=== PATIENT | female | born 1950 | race Caucasian/White ===

== ENCOUNTER 2019-03-27 14:07 | Inpatient (IN) ==
[2019-03-27] MEDS ORDERED: NS 1000 ML 1,000 ML IV SCH (16:24)
[2019-03-27 16:56] LABS: BASOPHILS % (AUTO) 0.3 % (0.2-1.0); EOSINOPHILS # (AUTO) 0.1 x10^3/uL (0.0-0.2); EOSINOPHILS % (AUTO) 1.1 % (0.9-2.9); HEMATOCRIT 39.4 % (36.0-47.0); HEMOGLOBIN 13.6 g/dL (12.0-16.0); LYMPHOCYTES # (AUTO) 1.8 X10^3/uL (1.3-2.9); LYMPHOCYTES % (AUTO) 21.5 % (21.0-51.0); MEAN CORPUSCULAR HEMOGLOBIN 29.1 pg (27.0-34.0); MEAN CORPUSCULAR HGB CONC 34.4 g/dL (33.0-35.0); MEAN CORPUSCULAR VOLUME 84.8 fL (80.0-100.0); MEAN PLATELET VOLUME 6.5 fL (7.4-11.0); MONOCYTES # (AUTO) 0.8 x10^3/uL (0.3-0.8); NEUTROPHILS # (AUTO) 5.6 x10^3/uL (2.2-4.8); NEUTROPHILS % (AUTO) 67.1 % (42.0-75.0); PLATELET COUNT 306 X10^3/uL (150.0-450.0); RED BLOOD COUNT 4.65 X10^6/uL (3.5-5.4); RED CELL DISTRIBUTION WIDTH 14.4 % (11.6-16.5); WHITE BLOOD COUNT 8.3 X10^3/uL (3.6-10.0)
[2019-03-27 17:12] LABS: ALANINE AMINOTRANSFERASE 20 Units/L (12-78); ALBUMIN 3.7 g/dL (3.4-5.0); ALKALINE PHOSPHATASE 104 Units/L (46-116); AMYLASE 37 Units/L (25-115); ASPARTATE AMINO TRANSFERASE 16 Units/L (15-37); BLOOD UREA NITROGEN 20 mg/dL (7-18); CALCIUM 9.2 mg/dL (8.5-10.1); CARBON DIOXIDE 27.4 mmol/L (21-32); CHLORIDE 99 mmol/L (98-107); COR NA(FOR HYPERGLY) 138 mmol/L (136-145); CREATININE 1.07 mg/dL (0.55-1.02); LIPASE 145 Units/L (73-393); SODIUM 137 mmol/L (136-145); TOTAL PROTEIN 7.9 g/dL (6.4-8.2); eGFR NON BLACK RACES 54 (>60)
[2019-03-27] MEDS: PROTONIX INJ 40 MG VIAL IVP SCH (17:26)
[2019-03-27] MEDS ORDERED: KLOR-CON PO PRN (17:29)
[2019-03-27] MEDS ORDERED: MAGNESIUM SULFATE 1 GRAM/100 mL PREMIX 1 GM/100 ML BAG IV PRN (17:29)
[2019-03-27] MEDS ORDERED: POTASSIUM CHL 40 MEQ/NS 0.45% 500 ML IV PRN (17:29)
[2019-03-27] MEDS ORDERED: K-DUR TAB 20 MEQ PO PRN (17:29)
[2019-03-27] MEDS ORDERED: MICRO K EXTEN CAP 10 MEQ PO PRN (17:29)
[2019-03-27] MEDS ORDERED: POTASSIUM CHL 60 MEQ/NS 0.45% 500 ML IV PRN (17:29)
[2019-03-27] MEDS ORDERED: POTASSIUM CHLORIDE LIQ 20 MEQ UDC PO PRN (17:29)
[2019-03-27] MEDS: MAG-OX TAB PO SCH (18:18)
[2019-03-27] MEDS: K-RIDER 10 MEQ/NS 100 ML 10 MEQ/100 ML BAG IV PRN ×2 (18:34→22:41)
[2019-03-27 18:49] VITALS: BMI 33.1
--- NOTE | 2019-03-27 19:12 | DR.H&P ---
H&P - History & Physical for Day of: H&P Date: 03/27/19 - Chief Complaint Chief Complaint: ABDOMINAL PAIN, NAUSEA/VOMITING - History of Present Illness History of Present Illness: IS A 68 YEAR OLD PATIENT OF OURS WHO IS A DIRECT ADMISSION DUE TO COMPLAINTS OF ABDOMINAL PAIN, NAUSEA, VOMITING, AND LIQUID STOOLS. SHE REPORTS ABDOMINAL PAIN SINCE 03/25/19. SHE WAS SEEN IN THE ER YESTERDAY. AT THAT TIME, A KUB REVEALED: Gaseous distention of both large and small bowel. Findings may represent ileus versus early/partial obstruction. SHE HAS A HISTORY OF BOWEL OBSTRUCTION. TODAY, SHE COMPLAINS OF PERSISTENT PAIN WITHOUT IMPROVEMENT. ON ADMISSION, VITALS WERE 98.9-89-20-94%-126/58. LABS WERE OBTAINED. ABNORMAL LAB VALUES INCLUDE THE FOLLOWING: BUN 20, CREATININE 1.07, GLUCOSE 126. WE WILL REPEAT A KUB TODAY AND CONSULT , GENERAL SURGEON. SHE WILL BE STARTED ON NORMAL SALINE AT 75ML/R, IV PROTONIX, DILAUDID 1MG IV Q4H PRN, POTASSIUM PROTOCOL, AND HOME MEDICATIONS WILL BE RESUMED. OTHERWISE, WE PLAN TO FOLLOW UP WITH AM LABS AND CONTINUE TO MONITOR. - Past Medical History Past Medical History: Depression, Anxiety, Hypothyroidism, COPD, GERD, Arthritis Additional Medical History: Frequent Constipation, Small Bowel Obstruction - Past Surgical History Surgical History: Abdominal Surgery, Joint Replacement Additional Surgical History: Hernia Repair, Back Surgery, Bladder Tack - Family History Family Medical History: Cancer, [place] - Social History Does patient currently use any type of tobacco product: No Have you used tobacco products in the last 12 months: No Type of Tobacco Use: None Does any household member use tobacco: No Alcohol Use: None Drug Use: None Prescription drug monitoring program results: PDMP was not reviewed - Medications Home Medications: prednisone Allergy (Verified 03/27/19 18:04) - Review of Systems Constitutional: Weakness Eyes: No Symptoms Reported ENT: No Symptoms Reported Respiratory: No Symptoms Reported Cardiovascular: No Symptoms Reported Gastrointestinal: Nausea, Vomiting, Abdominal Pain, Diarrhea Genitourinary: No Symptoms Reported Musculoskeletal: No Symptoms Reported Skin: No Symptoms Reported Neurological: Weakness - Physical Exam Vital Signs: Temperature 98.9 F Pulse Rate [Left Brachial] 89 Respiratory Rate 20 Blood Pressure [Right Arm] 136/60 Blood Pressure [Left Arm] 126/58 Blood Pressure [Standing] 114/56 Blood Pressure [Sitting] 110/50 Blood Pressure [Lying] 115/54 Blood Pressure 159/73 O2 Sat by Pulse Oximetry 94 Oriented: Normal Eyes: Normal Ear: Normal Nose: Normal Throat: Normal Respiratory: Diminished Throughout Cardiovascular: Normal : Normal Auscultation: Bowel Sounds: Decreased Palpation: Normal Tenderness: Diffuse, Moderate. negative: Rebound, Guarding, Rigidity Skin: Normal Musculoskeletal: Normal Psychiatric: Normal Mood Description: Calm Affect: Normal Speech Pattern: Clear - Assessment/Plan (1) Small bowel obstruction Status: Acute Plan: ADMIT, SURGICAL CONSULT, IV DILAUDID, IV ZOFRAN, IV PROTONIX, CONTINUE TO MONITOR (2) Abdominal pain Qualifiers: Abdominal location: generalized Qualified Code(s): R10.84 - Generalized abd ominal pain Status: Acute (3) Abdominal distension (gaseous) Status: Acute (4) Nausea & vomiting Qualifiers: Vomiting type: unspecified Vomiting Intractability: non-intractable Qualified Code(s): R11.2 - Nausea with vomiting, unspecified Status: Acute (5) Hypokalemia Status: Acute Plan: POTASSIUM PROTOCOL - Allergies Allergies/Adverse Reactions: Allergies Allergy/AdvReac Type Severity Reaction Status Date / Time prednisone Allergy Verified 03/27/19 18:04
[2019-03-27] MEDS ORDERED: ZOFRAN INJ 4 MG VIAL ONE (19:37)
[2019-03-27] MEDS: ZOFRAN INJ 4 MG VIAL IVP PRN (19:37)
[2019-03-27] MEDS: DILAUDID INJ IVP PRN (19:38)
[2019-03-27] MEDS ORDERED: ATIVAN INJ 2 MG VIAL ONE (20:09)
[2019-03-27] MEDS: ATIVAN INJ 2 MG VIAL IVP PRN (20:16)
[2019-03-27] MEDS: WELLBUTRIN SR 150 MG (BID) PO SCH (21:47)
[2019-03-27] MEDS: D5 1/2 NS 1000 ML 1,000 ML IV SCH (21:48)
--- NOTE | 2019-03-27 22:15 | RAD ---
Abdomen radiograph single-view Indication: NG tube placement Comparison: 03/27/2019 Findings: There is NG tube projecting over the upper abdomen, presumably in the stomach, probably associated with the hiatal hernia. Dilated loop of small bowel are noted. There is no large free air or pneumatosis. Cholecystectomy clips noted. Impression: Small bowel obstruction suggested. NG tube projects over the upper abdomen. Reported By:
--- NOTE | 2019-03-27 22:19 | CT ---
CT abdomen and pelvis without contrast Indication: Abdominal distention. Comparison: 10/26/2014 CT reviewed Technique: Helical images through the abdomen and pelvis without contrast. Coronal and sagittal reformats provided. Findings: Review of bone windows shows no destructive osseous lesion. Spine hardware noted. Limited images through the lower chest shows scarring. Heart size is normal. Abdomen: The gallbladder is absent. The liver, spleen, pancreas, adrenal glands, stomach and kidneys show no acute abnormality within limits of a noncontrast study. Aortic calcifications noted. Proximal small bowel is dilated with matted loops of mid abdominal small bowel and collapse of the colon distally. There is anastomosis in the right abdomen with transition point probably in the mid abdomen on axial image 55. Pelvis: The urinary bladder and rectum are normal. Uterus is absent. No adnexal region lesions seen. Impression: 1. Dilated loops of mid abdominal small bowel with stranding and fecal material in the bowel. Correlate clinically for any signs of developing bowel ischemia. Transition point is probably in the mid abdomen, with matted loops of small bowel seen anteriorly. Surgical consultation recommended 2. Other findings as above. Reported By:
[2019-03-28] MEDS: D5 1/2 NS 1000 ML 1,000 ML IV SCH ×3 (03:53→18:12)
--- NOTE | 2019-03-28 05:10 | RAD ---
Abdomen radiographic series-2 supine views Indication: Abdominal pain Comparison: 03/26/2019 Findings: Dilated loops of bowel are identified without free air or pneumatosis seen. Heart size is prominent. Impression: Small bowel obstruction. See separately dictated CT Reported By:
[2019-03-28 06:00] LABS: BASOPHILS % (AUTO) 0.5 % (0.2-1.0); EOSINOPHILS # (AUTO) 0.1 x10^3/uL (0.0-0.2); HEMATOCRIT 34.5 % (36.0-47.0); HEMOGLOBIN 11.7 g/dL (12.0-16.0); LYMPHOCYTES # (AUTO) 1.5 X10^3/uL (1.3-2.9); LYMPHOCYTES % (AUTO) 20.8 % (21.0-51.0); MEAN CORPUSCULAR HGB CONC 33.9 g/dL (33.0-35.0); MEAN CORPUSCULAR VOLUME 85.6 fL (80.0-100.0); MEAN PLATELET VOLUME 6.9 fL (7.4-11.0); MONOCYTES # (AUTO) 0.9 x10^3/uL (0.3-0.8); MONOCYTES % (AUTO) 11.8 % (0.0-13.0); NEUTROPHILS # (AUTO) 4.8 x10^3/uL (2.2-4.8); NEUTROPHILS % (AUTO) 64.9 % (42.0-75.0); PLATELET COUNT 246 X10^3/uL (150.0-450.0); RED BLOOD COUNT 4.03 X10^6/uL (3.5-5.4); RED CELL DISTRIBUTION WIDTH 14.4 % (11.6-16.5); WHITE BLOOD COUNT 7.4 X10^3/uL (3.6-10.0)
[2019-03-28 06:17] LABS: ALANINE AMINOTRANSFERASE 72 Units/L (12-78); ALBUMIN 2.9 g/dL (3.4-5.0); ALKALINE PHOSPHATASE 143 Units/L (46-116); ASPARTATE AMINO TRANSFERASE 64 Units/L (15-37); BLOOD UREA NITROGEN 15 mg/dL (7-18); CALCIUM 8.3 mg/dL (8.5-10.1); CARBON DIOXIDE 29.1 mmol/L (21-32); CHLORIDE 102 mmol/L (98-107); COR CA(FOR HYPOALB) 9.2 mg/dL (8.5-10.1); COR NA(FOR HYPERGLY) 138 mmol/L (136-145); CREATININE 0.79 mg/dL (0.55-1.02); MAGNESIUM 1.6 mg/dL (1.7-2.9); SODIUM 138 mmol/L (136-145); TOTAL PROTEIN 6.3 g/dL (6.4-8.2); eGFR NON BLACK RACES > 60 (>60)
[2019-03-28 06:43] LABS: BILIRUBIN,URINE NEGATIVE (NEGATIVE); BLOOD/HEMOGLOBIN,URINE 1+ (NEGATIVE); GLUCOSE, URINE NEGATIVE (NEGATIVE); KETONES,URINE NEGATIVE (NEGATIVE); LEUKOCYTE ESTERASE ,URINE 3+ (NEGATIVE); NITRITES,URINE NEGATIVE (NEGATIVE); PROTEIN,URINE 1+ (NEGATIVE); UROBILINOGEN,URINE NORMAL (NORMAL)
[2019-03-28 06:44] LABS: APPEARANCE,URINE HAZY (CLEAR); COLOR,URINE YELLOW (YELLOW)
[2019-03-28 06:45] LABS: BACTERIA,URINE TRACE /HPF (NEGATIVE); HYALINE CASTS, URINE FEW /LPF (NEGATIVE); MUCUS,URINE FEW /HPF (NEGATIVE); SQUAMOUS EPITHELIAL CELL,UR FEW /HPF (NEGATIVE)
[2019-03-28] MEDS: K-RIDER 10 MEQ/NS 100 ML 10 MEQ/100 ML BAG IV PRN ×2 (08:47→12:20)
[2019-03-28] MEDS ORDERED: ROCEPHIN VIAL 1 GRAM 1 G in NS 100 ML IV + SPIKE MINIBAG* 100 ML IV SCH (09:00)
[2019-03-28] MEDS: PROTONIX INJ 40 MG VIAL IVP SCH (09:42)
[2019-03-28] MEDS ORDERED: AFLURIA II4 or FLUARIX II4 IM ONE (10:00)
[2019-03-28] MEDS: MAG-OX TAB PO SCH (10:29)
[2019-03-28] MEDS: WELLBUTRIN SR 150 MG (BID) PO SCH ×2 (10:29→21:02)
[2019-03-28] MEDS: DILAUDID INJ IVP PRN ×3 (10:40→22:09)
[2019-03-28] MEDS: CIPRO IV 400 MG PREMIX* 400 MG/200 ML IV.SOLN. IV SCH ×2 (10:48→21:02)
[2019-03-28] MEDS: SOLU-Medrol 40 MG VIAL IVP SCH ×3 (10:50→21:02)
--- NOTE | 2019-03-28 11:44 | RAD ---
HISTORY: Abdominal Pain Study: Two views of the abdomen. Comparison: None Findings: Evaluation of the abdomen demonstrates a normal bowel gas pattern. No free air. No pathological soft tissue mass or calcification can be observed. The bony structures are grossly intact. IMPRESSION: 1. No evidence for acute abdominal pathology identified. Reported By:
--- NOTE | 2019-03-28 11:55 | PCM.PROG ---
Progress Note - Progress Note for Day of Date of Exam: 03/28/19 - Subjective Subjective: WAS ADMITTED FOR ILEUS VS SMALL BOWEL OBSTRUCTION AND ABDOMINAL PAIN. ON ADMISSION, A KUB WAS REPEATED AND REVEALED A SMALL BOWEL OBSTRUCTION. WAS CONSULTED. HE ORDERED AN ABDOMEN/PELVIS CT WHICH REVEALED: Dilated loops of mid abdominal small bowel with stranding and fecal material in the bowel. Correlate clinically for any signs of developing bowel ischemia. Transition point is probably in the mid abdomen, with matted loops of small bowel seen anteriorly. HE PLACED AN NG TUBE TO LOW INTERMITTENT SUCTION AND MADE HER NPO. HE INCREASED HER IV FLUIDS. TODAY, SHE IS LYING IN BED WITH EYES CLOSED ON MORNING ROUNDS. SHE AWAKENS EASILY TO VERBAL STIMUI. SHE REPORTS MILD IMPROVEMENT IN SYMPTOMS. ON EXAMINATION, HEART IS REGULAR IN RATE AND RHYTHM. BILATERAL LUNGS NOTED WITH DIMINISHED LUNG SOUNDS. ABDOMEN IS ROUND, SOFT, AND NOTED WITH MILD, DIFFUSE TENDERNESS. HYPOACTIVE BOWEL SOUNDS NOTED. HER VITALS THIS MORNING ARE: 98.0-78-20-99%-124/58. LABS WERE OBTAINED. ABNORMAL LAB VALUES INCLUDE THE FOLLOWING: HGB 11.7, HCT 34.5, GLUCOSE 112, CALCIUM 8.3, MAGNESIUM 1.6, AST 64, ALK PHOS 143, TOTAL PROTEIN 6.3, ALBUMIN 2.9. URINALYSIS REVEALED: WBC 10-20, RBC 10-20, BACTERIA TRACE, LEUKOCYTES 3+. URINE CULTURE IS PENDING. A KUB WAS REPEATED THIS MORNING AND REVEALED: Small bowel obstruction suggested. NG tube projects over the upper abdomen. SHE IS CURRENTLY RECEIVING D51/2 NS AT 150ML/HR, POTASSIUM AND MAGNESIUM PROTOCOLS, DILAUDID 1MG IV Q4H PRN, AND ZOFRAN 4MG IV Q6H PRN. TODAY, WE WILL START CIPRO 400MG IV Q12H AND SOLU-MEDROL 40MG IV Q8H. OTHERWISE, WE WILL CONTINUE WITH CURRENT PLAN OF CARE. WE PLAN TO FOLLOW UP WITH AM LABS AND CONTINUE TO MONITOR. - Past Medical Family Social History Past Med/Fam/Surg Hx: No changes since H&P Allergies: Allergies prednisone Allergy (Verified 03/27/19 18:04) - Review of Systems ROS: No change since H&P - Vital Signs and I&O's Vital Signs: Temperature 98.0 F Pulse Rate [Right Brachial] 78 Pulse Rate [Left Brachial] 89 Pulse Rate 77 Respiratory Rate 20 Blood Pressure [Right Arm] 124/58 Blood Pressure [Left Arm] 126/58 Blood Pressure [Standing] 114/56 Blood Pressure [Sitting] 110/50 Blood Pressure [Lying] 115/54 Blood Pressure 159/73 O2 Sat by Pulse Oximetry 100 Intake and Output: Intake & Output 03/25/19 03/26/19 03/27/19 03/28/19 11:59 11:59 11:59 11:59 Intake Total 0 / 0 Output Total 0 / 0 Balance 0 / 0 - Physical Exam Oriented: Normal Eyes: Normal Nose: Normal, Other (NG TUBE TO LOW INTERMITTENT SUCTION ) Throat: Normal Respiratory: Generalized, Diminished Cardiovascular: Normal : Normal Auscultation: Bowel Sounds: Decreased Palpation: Normal Tenderness: Diffuse, Mild. negative: Rebound, Guarding, Rigidity Skin: Normal Musculoskeletal: Normal Psychiatric: Normal Mood Description: Calm Affect: Normal Speech Pattern: Clear, Appropriate - Laboratory and Diagnostics Result Diagrams: 03/28/19 05:23 03/28/19 05:23 Labs: Laboratory WBC 7.4 X10^3/uL (3.6-10.0) 03/28/19 05:23 RBC 4.03 X10^6/uL (3.5-5.4) 03/28/19 05:23 Hgb 11.7 g/dL (12.0-16.0) L 03/28/19 05:23 Hct 34.5 % (36.0-47.0) L 03/28/19 05:23 MCV 85.6 fL (80.0-100.0) 03/28/19 05:23 MCH 29.0 pg (27.0-34.0) 03/28/19 05:23 MCHC 33.9 g/dL (33.0-35.0) 03/28/19 05:23 RDW 14.4 % (11.6-16.5) 03/28/19 05:23 Plt Count 246 X10^3/uL (150.0-450.0) 03/28/19 05:23 MPV 6.9 fL (7.4-11.0) L 03/28/19 05:23 Neut % (Auto) 64.9 % (42.0-75.0) 03/28/19 05:23 Lymph % (Auto) 20.8 % (21.0-51.0) L 03/28/19 05:23 [place] % (Auto) 11.8 % (0.0-13.0) 03/28/19 05:23 Eos % (Auto) 2.0 % (0.9-2.9) 03/28/19 05:23 Baso % (Auto) 0.5 % (0.2-1.0) 03/28/19 05:23 Neut # (Auto) 4.8 x10^3/uL (2.2-4.8) 03/28/19 05:23 Lymph # (Auto) 1.5 X10^3/uL (1.3-2.9) 03/28/19 05:23 [place] # (Auto) 0.9 x10^3/uL (0.3-0.8) H 03/28/19 05:23 Eos # (Auto) 0.1 x10^3/uL (0.0-0.2) 03/28/19 05:23 Baso # (Auto) 0.0 X10^3/uL (0.0-0.1) 03/28/19 05:23 Absolute Nucleated RBC 0.0 /100WBC 03/28/19 05:23 Sodium 138 mmol/L (136-145) 03/28/19 05:23 Corrected Sodium 138 mmol/L (136-145) 03/28/19 05:23 Potassium 3.7 mmol/L (3.5-5.1) 03/28/19 05:23 Chloride 102 mmol/L (98-107) 03/28/19 05:23 Carbon Dioxide 29.1 mmol/L (21-32) 03/28/19 05:23 BUN 15 mg/dL (7-18) 03/28/19 05:23 Creatinine 0.79 mg/dL (0.55-1.02) 03/28/19 05:23 Est GFR (MDRD) Af Amer > 60 (>60) 03/28/19 05:23 Est GFR (MDRD) Non-Af > 60 (>60) 03/28/19 05:23 Glucose 112 mg/dL (65-99) H 03/28/19 05:23 Calcium 8.3 mg/dL (8.5-10.1) L 03/28/19 05:23 Corrected Calcium 9.2 mg/dL (8.5-10.1) 03/28/19 05:23 Magnesium 1.6 mg/dL (1.7-2.9) L 03/28/19 05:23 Total Bilirubin 0.30 mg/dL (0.2-1.0) 03/28/19 05:23 AST 64 Units/L (15-37) H 03/28/19 05:23 ALT 72 Units/L (12-78) 03/28/19 05:23 Alkaline Phosphatase 143 Units/L (46-116) H 03/28/19 05:23 Total Protein 6.3 g/dL (6.4-8.2) L 03/28/19 05:23 Albumin 2.9 g/dL (3.4-5.0) L 03/28/19 05:23 Globulin 3.4 g/dL (2.5-4.5) 03/28/19 05:23 Albumin/Globulin Ratio 0.9 Ratio (1.1-2.1) L 03/28/19 05:23 Amylase 37 Units/L (25-115) 03/27/19 16:48 Lipase 145 Units/L (73-393) 03/27/19 16:48 Specimen Type Clean catch urine 03/28/19 06:25 Urine Color Yellow (YELLOW) 03/28/19 06:25 Urine Appearance Hazy (CLEAR) 03/28/19 06:25 Urine pH 6.0 (5.0 - 8.0) 03/28/19 06:25 Ur Specific [place] 1.015 (1.000-1.030) 03/28/19 06:25 Urine Protein 1+ (NEGATIVE) 03/28/19 06:25 Urine Glucose (UA) Negative (NEGATIVE) 03/28/19 06:25 Urine Ketones Negative (NEGATIVE) 03/28/19 06:25 Urine Occult Blood 1+ (NEGATIVE) 03/28/19 06:25 Urine Nitrite Negative (NEGATIVE) 03/28/19 06:25 Urine Bilirubin Negative (NEGATIVE) 03/28/19 06:25 Urine Urobilinogen Normal (NORMAL) 03/28/19 06:25 Ur Leukocyte Esterase 3+ (NEGATIVE) 03/28/19 06:25 Urine RBC 10-20 /HPF (0-3) A 03/28/19 06:25 Urine WBC 10-20 /HPF (0-5) A 03/28/19 06:25 Ur Squamous Epith Cells Few /HPF (NEGATIVE) 03/28/19 06:25 Urine Bacteria Trace /HPF (NEGATIVE) 03/28/19 06:25 Hyaline Casts Few /LPF (NEGATIVE) 03/28/19 06:25 Urine Mucus Few /HPF (NEGATIVE) 03/28/19 06:25 Ur Culture Indicated? Yes/culture set up 03/28/19 06:25 - Plan (1) Small bowel obstruction Status: Acute Plan: NG TUBE TO LOW INTERMITTENT SUCTION IV DILAUDID, SOLU-MEDROL 40MG IV Q8H, IV ZOFRAN, IV PROTONIX, CONTINUE TO MONITOR (2) Abdominal pain Status: Acute Qualifiers: Abdominal location: generalized Qualified Code(s): R10.84 - Generalized abdominal pain (3) Abdominal distension (gaseous) Status: Acute (4) Nausea & vomiting Status: Acute Qualifiers: Vomiting type: unspecified Vomiting Intractability: non-intractable Qualified Code(s): R11.2 - Nausea with vomiting, unspecified (5) Hypokalemia Status: Acute Plan: POTASSIUM PROTOCOL (6) UTI (urinary tract infection) Status: Acute Qualifiers: Urinary tract infection type: site unspecified Hematuria presence: without hematuria Qualified Code(s): N39.0 - Urinary tract infection, site not specified Plan: CIPRO 400MG IV Q12H, CONTINUE TO MONITOR
[2019-03-28] MEDS ORDERED: PHARMACY CONSULT - DOSE _____ XX SCH (12:00)
--- NOTE | 2019-03-28 13:03 | DR.PROGNOT ---
Hospital Progress Notes - Progress Note for Day of: Progress Note Date: 03/28/19 - Chief Complaint Chief Complaint: feeling better today . less abdominal pain . abdominal xray showed resolving SBO . afebrile . CBC normal . - Past Medical Family Social History Past Med/Fam/Surg Hx: No changes since H&P Allergies: Allergies prednisone Allergy (Verified 03/27/19 18:04) - Review Of Systems ROS: No change since H&P - Vital Signs Vital Signs: Temperature 97.9 F Pulse Rate [Right Brachial] 82 Pulse Rate [Left Brachial] 89 Pulse Rate 77 Respiratory Rate 20 Blood Pressure [Right Arm] 113/59 Blood Pressure [Left Arm] 126/58 Blood Pressure [Standing] 114/56 Blood Pressure [Sitting] 110/50 Blood Pressure [Lying] 115/54 Blood Pressure 159/73 O2 Sat by Pulse Oximetry 100 - Physical Exam Oriented: Normal Eyes: Normal Ear: Normal Nose: Normal, Other (NG TUBE TO LOW INTERMITTENT SUCTION ) Throat: Normal Respiratory: Generalized, Diminished Cardiovascular: Normal : Normal GI:Auscultation: Decreased GI:Palpation: Normal GI: Tenderness: Diffuse, Mild (abdomen still with moderate distention and tympanic , ). negative: Rebound, Guarding, Rigidity Skin: Normal Musculoskeletal: Normal Psychiatric: Normal Mood Description: Calm Affect: Normal Speech Pattern: Clear, Appropriate - Laboratory and Diagnostics Result Diagrams: 03/28/19 05:23 03/28/19 05:23 Labs: Laboratory WBC 7.4 X10^3/uL (3.6-10.0) 03/28/19 05:23 RBC 4.03 X10^6/uL (3.5-5.4) 03/28/19 05:23 Hgb 11.7 g/dL (12.0-16.0) L 03/28/19 05:23 Hct 34.5 % (36.0-47.0) L 03/28/19 05:23 MCV 85.6 fL (80.0-100.0) 03/28/19 05:23 MCH 29.0 pg (27.0-34.0) 03/28/19 05:23 MCHC 33.9 g/dL (33.0-35.0) 03/28/19 05:23 RDW 14.4 % (11.6-16.5) 03/28/19 05:23 Plt Count 246 X10^3/uL (150.0-450.0) 03/28/19 05:23 MPV 6.9 fL (7.4-11.0) L 03/28/19 05:23 Neut % (Auto) 64.9 % (42.0-75.0) 03/28/19 05:23 Lymph % (Auto) 20.8 % (21.0-51.0) L 03/28/19 05:23 [place] % (Auto) 11.8 % (0.0-13.0) 03/28/19 05:23 Eos % (Auto) 2.0 % (0.9-2.9) 03/28/19 05:23 Baso % (Auto) 0.5 % (0.2-1.0) 03/28/19 05:23 Neut # (Auto) 4.8 x10^3/uL (2.2-4.8) 03/28/19 05:23 Lymph # (Auto) 1.5 X10^3/uL (1.3-2.9) 03/28/19 05:23 [place] # (Auto) 0.9 x10^3/uL (0.3-0.8) H 03/28/19 05:23 Eos # (Auto) 0.1 x10^3/uL (0.0-0.2) 03/28/19 05:23 Baso # (Auto) 0.0 X10^3/uL (0.0-0.1) 03/28/19 05:23 Absolute Nucleated RBC 0.0 /100WBC 03/28/19 05:23 Sodium 138 mmol/L (136-145) 03/28/19 05:23 Corrected Sodium 138 mmol/L (136-145) 03/28/19 05:23 Potassium 3.7 mmol/L (3.5-5.1) 03/28/19 05:23 Chloride 102 mmol/L (98-107) 03/28/19 05:23 Carbon Dioxide 29.1 mmol/L (21-32) 03/28/19 05:23 BUN 15 mg/dL (7-18) 03/28/19 05:23 Creatinine 0.79 mg/dL (0.55-1.02) 03/28/19 05:23 Est GFR (MDRD) Af Amer > 60 (>60) 03/28/19 05:23 Est GFR (MDRD) Non-Af > 60 (>60) 03/28/19 05:23 Glucose 112 mg/dL (65-99) H 03/28/19 05:23 Calcium 8.3 mg/dL (8.5-10.1) L 03/28/19 05:23 Corrected Calcium 9.2 mg/dL (8.5-10.1) 03/28/19 05:23 Magnesium 1.6 mg/dL (1.7-2.9) L 03/28/19 05:23 Total Bilirubin 0.30 mg/dL (0.2-1.0) 03/28/19 05:23 AST 64 Units/L (15-37) H 03/28/19 05:23 ALT 72 Units/L (12-78) 03/28/19 05:23 Alkaline Phosphatase 143 Units/L (46-116) H 03/28/19 05:23 Total Protein 6.3 g/dL (6.4-8.2) L 03/28/19 05:23 Albumin 2.9 g/dL (3.4-5.0) L 03/28/19 05:23 Globulin 3.4 g/dL (2.5-4.5) 03/28/19 05:23 Albumin/Globulin Ratio 0.9 Ratio (1.1-2.1) L 03/28/19 05:23 Amylase 37 Units/L (25-115) 03/27/19 16:48 Lipase 145 Units/L (73-393) 03/27/19 16:48 Specimen Type Clean catch urine 03/28/19 06:25 Urine Color Yellow (YELLOW) 03/28/19 06:25 Urine Appearance Hazy (CLEAR) 03/28/19 06:25 Urine pH 6.0 (5.0 - 8.0) 03/28/19 06:25 Ur Specific [place] 1.015 (1.000-1.030) 03/28/19 06:25 Urine Protein 1+ (NEGATIVE) 03/28/19 06:25 Urine Glucose (UA) Negative (NEGATIVE) 03/28/19 06:25 Urine Ketones Negative (NEGATIVE) 03/28/19 06:25 Urine Occult Blood 1+ (NEGATIVE) 03/28/19 06:25 Urine Nitrite Negative (NEGATIVE) 03/28/19 06:25 Urine Bilirubin Negative (NEGATIVE) 03/28/19 06:25 Urine Urobilinogen Normal (NORMAL) 03/28/19 06:25 Ur Leukocyte Esterase 3+ (NEGATIVE) 03/28/19 06:25 Urine RBC 10-20 /HPF (0-3) A 03/28/19 06:25 Urine WBC 10-20 /HPF (0-5) A 03/28/19 06:25 Ur Squamous Epith Cells Few /HPF (NEGATIVE) 03/28/19 06:25 Urine Bacteria Trace /HPF (NEGATIVE) 03/28/19 06:25 Hyaline Casts Few /LPF (NEGATIVE) 03/28/19 06:25 Urine Mucus Few /HPF (NEGATIVE) 03/28/19 06:25 Ur Culture Indicated? Yes/culture set up 03/28/19 06:25 - Assessment and Plan 1: resolving partial SBO . will D/C NGT , start on clear liquid . when tolerating diet and moving her bowel , pt could be discharged in am . will follow as out pt . - Problem Patient Problems: Patient Problems Small bowel obstruction (Acute) K56.609 Abdominal pain (Acute) R10.9 Hypokalemia (Acute) E87.6
[2019-03-28] MEDS: LOVENOX INJ 40 MG SYR SC SCH (13:24)
[2019-03-28] MEDS: ATIVAN INJ 2 MG VIAL IVP PRN (21:26)
[2019-03-29] MEDS: ZOFRAN INJ 4 MG VIAL IVP PRN ×2 (01:15→22:43)
[2019-03-29] MEDS: D5 1/2 NS 1000 ML 1,000 ML IV SCH ×4 (04:00→20:51)
[2019-03-29 05:17] LABS: BASOPHILS % (AUTO) 0.2 % (0.2-1.0); EOSINOPHILS % (AUTO) 0.1 % (0.9-2.9); HEMATOCRIT 34.3 % (36.0-47.0); HEMOGLOBIN 11.5 g/dL (12.0-16.0); LYMPHOCYTES # (AUTO) 0.8 X10^3/uL (1.3-2.9); LYMPHOCYTES % (AUTO) 11.8 % (21.0-51.0); MEAN CORPUSCULAR HEMOGLOBIN 29.1 pg (27.0-34.0); MEAN CORPUSCULAR HGB CONC 33.5 g/dL (33.0-35.0); MEAN CORPUSCULAR VOLUME 86.7 fL (80.0-100.0); MEAN PLATELET VOLUME 7.4 fL (7.4-11.0); MONOCYTES # (AUTO) 0.2 x10^3/uL (0.3-0.8); MONOCYTES % (AUTO) 3.7 % (0.0-13.0); NEUTROPHILS # (AUTO) 5.6 x10^3/uL (2.2-4.8); NEUTROPHILS % (AUTO) 84.2 % (42.0-75.0); PLATELET COUNT 260 X10^3/uL (150.0-450.0); RED BLOOD COUNT 3.96 X10^6/uL (3.5-5.4); WHITE BLOOD COUNT 6.6 X10^3/uL (3.6-10.0)
[2019-03-29 05:31] LABS: ALANINE AMINOTRANSFERASE 124 Units/L (12-78); ALKALINE PHOSPHATASE 178 Units/L (46-116); ASPARTATE AMINO TRANSFERASE 69 Units/L (15-37); BLOOD UREA NITROGEN 8 mg/dL (7-18); CALCIUM 8.6 mg/dL (8.5-10.1); CARBON DIOXIDE 27.7 mmol/L (21-32); CHLORIDE 102 mmol/L (98-107); COR CA(FOR HYPOALB) 9.4 mg/dL (8.5-10.1); COR NA(FOR HYPERGLY) 139 mmol/L (136-145); MAGNESIUM 1.8 mg/dL (1.7-2.9); SODIUM 137 mmol/L (136-145); TOTAL PROTEIN 6.6 g/dL (6.4-8.2); eGFR NON BLACK RACES > 60 (>60)
[2019-03-29] MEDS: SOLU-Medrol 40 MG VIAL IVP SCH ×3 (05:36→21:00)
[2019-03-29] MEDS: PROVENTIL NEB TX 0.083% 2.5MG/ 3ML NEB PRN ×4 (08:34→20:26)
[2019-03-29] MEDS ORDERED: TYLENOL 325 MG TAB PO PRN (08:40)
[2019-03-29] MEDS: WELLBUTRIN SR 150 MG (BID) PO SCH ×2 (08:43→20:49)
[2019-03-29] MEDS: PROTONIX INJ 40 MG VIAL IVP SCH (08:43)
[2019-03-29] MEDS: MAG-OX TAB PO SCH (08:43)
[2019-03-29] MEDS: CIPRO IV 400 MG PREMIX* 400 MG/200 ML IV.SOLN. IV SCH (08:44)
[2019-03-29] MEDS: LOVENOX INJ 40 MG SYR SC SCH (08:45)
[2019-03-29] MEDS ORDERED: TYLENOL 325 MG TAB PO ONE (09:26)
[2019-03-29] MEDS ORDERED: COLACE CAP 100 MG PO PRN (10:23)
[2019-03-29] MEDS ORDERED: MILK OF MAGNESIA ONE (10:41)
[2019-03-29] MEDS ORDERED: COLACE CAP 100 MG PO ONE ×2 (10:41)
[2019-03-29] MEDS: MILK OF MAGNESIA PO PRN ×2 (10:46→22:43)
--- NOTE | 2019-03-29 14:25 | PCM.PROG ---
Progress Note Subjective Subjective: WAS ADMITTED FOR ILEUS VS SMALL BOWEL OBSTRUCTION AND ABDOMINAL PAIN. ON ADMISSION, A KUB WAS REPEATED AND REVEALED A SMALL BOWEL OBSTRUCTION. WAS CONSULTED. HE ORDERED AN ABDOMEN/PELVIS CT WHICH REVEALED: Dilated loops of mid abdominal small bowel with stranding and fecal material in the bowel. Correlate clinically for any signs of developing bowel ischemia. Transition point is probably in the mid abdomen, with matted loops of small bowel seen anteriorly. HE PLACED AN NG TUBE TO LOW INTERMITTENT SUCTION AND MADE HER NPO. HE INCREASED HER IV FLUIDS. NGT REMOVED YESTERDAY. STARTED ON CLD. Pt seen this morning, tolerated CLD. She has not had BM yet, denies nausea, vomiting, abdominal pain. Past Medical Family Social History Past Med/Fam/Surg Hx: No changes since H&P Allergies: Allergies prednisone Allergy (Verified 03/27/19 18:04) Review of Systems ROS: No change since H&P Vital Signs and I&O's Vital Signs: Temperature 98.2 F Pulse Rate [Right Brachial] 96 Pulse Rate [Left Brachial] 89 Pulse Rate 89 Respiratory Rate 18 Blood Pressure [Right Arm] 132/63 Blood Pressure [Left Arm] 126/58 Blood Pressure [Standing] 114/56 Blood Pressure [Sitting] 110/50 Blood Pressure [Lying] 115/54 Blood Pressure 159/73 O2 Sat by Pulse Oximetry 93 Intake and Output: Intake & Output 03/26/19 03/27/19 03/28/19 03/29/19 23:59 23:59 23:59 23:59 Intake Total 0 / 0 3109 / 3109 2300 / 2300 Output Total 0 / 0 0 / 0 Balance 0 / 0 3109 / 3109 2300 / 2300 Physical Exam Oriented: Normal Eyes: Normal Ear: Normal Nose: Normal and Other (NG TUBE TO LOW INTERMITTENT SUCTION ) Throat: Normal Respiratory: Normal Cardiovascular: Normal Auscultation: Bowel Sounds: Normal Tenderness: Normal; negative Rebound, Guarding and Rigidity Skin: Normal Musculoskeletal: Normal Psychiatric: Normal Mood Description: Calm Affect: Normal Speech Pattern: Clear and Appropriate Laboratory and Diagnostics Result Diagrams: 03/29/19 04:27 03/29/19 04:27 Labs: 03/28/19 06:25 Urine,Clean Catch Urine Culture - Final Laboratory WBC 6.6 X10^3/uL (3.6-10.0) 03/29/19 04:27 RBC 3.96 X10^6/uL (3.5-5.4) 03/29/19 04:27 Hgb 11.5 g/dL (12.0-16.0) L 03/29/19 04:27 Hct 34.3 % (36.0-47.0) L 03/29/19 04:27 MCV 86.7 fL (80.0-100.0) 03/29/19 04:27 MCH 29.1 pg (27.0-34.0) 03/29/19 04:27 MCHC 33.5 g/dL (33.0-35.0) 03/29/19 04:27 RDW 14.0 % (11.6-16.5) 03/29/19 04:27 Plt Count 260 X10^3/uL (150.0-450.0) 03/29/19 04:27 MPV 7.4 fL (7.4-11.0) 03/29/19 04:27 Neut % (Auto) 84.2 % (42.0-75.0) H 03/29/19 04:27 Lymph % (Auto) 11.8 % (21.0-51.0) L 03/29/19 04:27 [place] % (Auto) 3.7 % (0.0-13.0) 03/29/19 04:27 Eos % (Auto) 0.1 % (0.9-2.9) L 03/29/19 04:27 Baso % (Auto) 0.2 % (0.2-1.0) 03/29/19 04:27 Neut # (Auto) 5.6 x10^3/uL (2.2-4.8) H 03/29/19 04:27 Lymph # (Auto) 0.8 X10^3/uL (1.3-2.9) L 03/29/19 04:27 [place] # (Auto) 0.2 x10^3/uL (0.3-0.8) L 03/29/19 04:27 Eos # (Auto) 0.0 x10^3/uL (0.0-0.2) 03/29/19 04:27 Baso # (Auto) 0.0 X10^3/uL (0.0-0.1) 03/29/19 04:27 Absolute Nucleated RBC 0.0 /100WBC 03/29/19 04:27 Sodium 137 mmol/L (136-145) 03/29/19 04:27 Corrected Sodium 139 mmol/L (136-145) 03/29/19 04:27 Potassium 4.1 mmol/L (3.5-5.1) 03/29/19 04:27 Chloride 102 mmol/L (98-107) 03/29/19 04:27 Carbon Dioxide 27.7 mmol/L (21-32) 03/29/19 04:27 BUN 8 mg/dL (7-18) 03/29/19 04:27 Creatinine 0.70 mg/dL (0.55-1.02) 03/29/19 04:27 Est GFR (MDRD) Af Amer > 60 (>60) 03/29/19 04:27 Est GFR (MDRD) Non-Af > 60 (>60) 03/29/19 04:27 Glucose 181 mg/dL (65-99) H 03/29/19 04:27 Calcium 8.6 mg/dL (8.5-10.1) 03/29/19 04:27 Corrected Calcium 9.4 mg/dL (8.5-10.1) 03/29/19 04:27 Magnesium 1.8 mg/dL (1.7-2.9) 03/29/19 04:27 Total Bilirubin 0.10 mg/dL (0.2-1.0) L 03/29/19 04:27 AST 69 Units/L (15-37) H 03/29/19 04:27 ALT 124 Units/L (12-78) H 03/29/19 04:27 Alkaline Phosphatase 178 Units/L (46-116) H 03/29/19 04:27 Total Protein 6.6 g/dL (6.4-8.2) 03/29/19 04:27 Albumin 3.0 g/dL (3.4-5.0) L 03/29/19 04:27 Globulin 3.6 g/dL (2.5-4.5) 03/29/19 04:27 Albumin/Globulin Ratio 0.8 Ratio (1.1-2.1) L 03/29/19 04:27 Amylase 37 Units/L (25-115) 03/27/19 16:48 Lipase 145 Units/L (73-393) 03/27/19 16:48 Specimen Type Clean catch urine 03/28/19 06:25 Urine Color Yellow (YELLOW) 03/28/19 06:25 Urine Appearance Hazy (CLEAR) 03/28/19 06:25 Urine pH 6.0 (5.0 - 8.0) 03/28/19 06:25 Ur Specific [place] 1.015 (1.000-1.030) 03/28/19 06:25 Urine Protein 1+ (NEGATIVE) 03/28/19 06:25 Urine Glucose (UA) Negative (NEGATIVE) 03/28/19 06:25 Urine Ketones Negative (NEGATIVE) 03/28/19 06:25 Urine Occult Blood 1+ (NEGATIVE) 03/28/19 06:25 Urine Nitrite Negative (NEGATIVE) 03/28/19 06:25 Urine Bilirubin Negative (NEGATIVE) 03/28/19 06:25 Urine Urobilinogen Normal (NORMAL) 03/28/19 06:25 Ur Leukocyte Esterase 3+ (NEGATIVE) 03/28/19 06:25 Urine RBC 10-20 /HPF (0-3) A 03/28/19 06:25 Urine WBC 10-20 /HPF (0-5) A 03/28/19 06:25 Ur Squamous Epith Cells Few /HPF (NEGATIVE) 03/28/19 06:25 Urine Bacteria Trace /HPF (NEGATIVE) 03/28/19 06:25 Hyaline Casts Few /LPF (NEGATIVE) 03/28/19 06:25 Urine Mucus Few /HPF (NEGATIVE) 03/28/19 06:25 Ur Culture Indicated? Yes/culture set up 03/28/19 06:25 Plan (1) Small bowel obstruction: Status: Acute Plan: Advance diet as tolerated. Will advance to full liquids followed by soft and monitor for any symptoms. Likely d/c tmm if tolerating diet. (2) Abdominal pain: Status: Acute Qualifiers: Abdominal location: generalized Qualified Code(s): R10.84 - Generalized abdominal pain Plan: resolved (3) Abdominal distension (gaseous): Status: Acute (4) Nausea & vomiting: Status: Acute Qualifiers: Vomiting Intractability: non-intractable Vomiting type: unspecified Qualified Code(s): R11.2 - Nausea with vomiting, unspecified (5) Hypokalemia: Status: Acute Plan: POTASSIUM PROTOCOL (6) UTI (urinary tract infection): Status: Acute Qualifiers: Urinary tract infection type: site unspecified Hematuria presence: without hematuria Qualified Code(s): N39.0 - Urinary tract infection, site not specified Plan: Switch to oral cipro 500mg bid.
[2019-03-29] MEDS: ATIVAN INJ 2 MG VIAL IVP PRN ×2 (15:16→20:48)
[2019-03-29] MEDS: DILAUDID INJ IVP PRN (20:50)
[2019-03-29] MEDS: CIPRO TAB 500 MG PO SCH (20:57)
[2019-03-30] MEDS: D5 1/2 NS 1000 ML 1,000 ML IV SCH (03:27)
[2019-03-30] MEDS: SOLU-Medrol 40 MG VIAL IVP SCH (05:40)
[2019-03-30 05:42] LABS: BASOPHILS # (AUTO) 0.1 X10^3/uL (0.0-0.1); BASOPHILS % (AUTO) 0.5 % (0.2-1.0); EOSINOPHILS % (AUTO) 0.1 % (0.9-2.9); HEMATOCRIT 31.2 % (36.0-47.0); HEMOGLOBIN 10.5 g/dL (12.0-16.0); LYMPHOCYTES # (AUTO) 1.8 X10^3/uL (1.3-2.9); LYMPHOCYTES % (AUTO) 16.9 % (21.0-51.0); MEAN CORPUSCULAR HEMOGLOBIN 29.2 pg (27.0-34.0); MEAN CORPUSCULAR HGB CONC 33.8 g/dL (33.0-35.0); MEAN CORPUSCULAR VOLUME 86.3 fL (80.0-100.0); MEAN PLATELET VOLUME 6.9 fL (7.4-11.0); MONOCYTES # (AUTO) 0.9 x10^3/uL (0.3-0.8); MONOCYTES % (AUTO) 8.7 % (0.0-13.0); NEUTROPHILS # (AUTO) 7.9 x10^3/uL (2.2-4.8); NEUTROPHILS % (AUTO) 73.8 % (42.0-75.0); PLATELET COUNT 247 X10^3/uL (150.0-450.0); RED BLOOD COUNT 3.61 X10^6/uL (3.5-5.4); RED CELL DISTRIBUTION WIDTH 14.2 % (11.6-16.5); WHITE BLOOD COUNT 10.7 X10^3/uL (3.6-10.0)
[2019-03-30 05:48] LABS: ALANINE AMINOTRANSFERASE 78 Units/L (12-78); ALBUMIN 2.7 g/dL (3.4-5.0); ALKALINE PHOSPHATASE 148 Units/L (46-116); ASPARTATE AMINO TRANSFERASE 34 Units/L (15-37); BLOOD UREA NITROGEN 10 mg/dL (7-18); CALCIUM 7.9 mg/dL (8.5-10.1); CARBON DIOXIDE 28.3 mmol/L (21-32); CHLORIDE 103 mmol/L (98-107); COR CA(FOR HYPOALB) 8.9 mg/dL (8.5-10.1); COR NA(FOR HYPERGLY) 137 mmol/L (136-145); CREATININE 0.81 mg/dL (0.55-1.02); MAGNESIUM 2.1 mg/dL (1.7-2.9); SODIUM 137 mmol/L (136-145); TOTAL PROTEIN 5.9 g/dL (6.4-8.2); eGFR NON BLACK RACES > 60 (>60)
[2019-03-30] MEDS: PROVENTIL NEB TX 0.083% 2.5MG/ 3ML NEB PRN (08:43)
[2019-03-30] MEDS: LOVENOX INJ 40 MG SYR SC SCH (09:28)
[2019-03-30] MEDS: CIPRO TAB 500 MG PO SCH (09:28)
[2019-03-30] MEDS: MAG-OX TAB PO SCH (09:28)
[2019-03-30] MEDS: WELLBUTRIN SR 150 MG (BID) PO SCH (09:28)
[2019-03-30] MEDS: PROTONIX INJ 40 MG VIAL IVP SCH (09:30)
[2019-03-30] MEDS ORDERED: PROVENTIL NEB TX 0.083% 2.5MG/ 3ML ONE (11:23)
[2019-03-30 12:51] VITALS: BP 120/86
--- NOTE | 2019-04-02 15:02 | W.DIS.FURT ---
Summary of Discharge Discharge Summary of Date Date of Exam: 03/30/19 Admission Date Date of Admission: 03/27/19 Admission Diagnosis Hospital Course: Pt is a 68y/o female admitted directly from clinic due to abdominal pain, N/V and diarrhea. She reported abdominal pain since 03/15/19. In the ED, KUB showed gaseous distension of small and large bowel, suggestive of ileus vs partial SBO. Patient does have a history of bowel obstruction. On admission, NGT was placed and she was seen by surgery. Patient's symptoms improved and NGT was removed. She was started on clear diet and advanced as tolerated. Her electrolytes were monitored and replaced as needed. She also had UTI which was treated with PO Ciprofloxacin. She was tolerated diet and had a BM prior to discharge. Patient will be seen by PCP in one week. Labs: Laboratory Last Values WBC 10.7 X10^3/uL (3.6-10.0) H 03/30/19 05:15 RBC 3.61 X10^6/uL (3.5-5.4) 03/30/19 05:15 Hgb 10.5 g/dL (12.0-16.0) L 03/30/19 05:15 Hct 31.2 % (36.0-47.0) L 03/30/19 05:15 MCV 86.3 fL (80.0-100.0) 03/30/19 05:15 MCH 29.2 pg (27.0-34.0) 03/30/19 05:15 MCHC 33.8 g/dL (33.0-35.0) 03/30/19 05:15 RDW 14.2 % (11.6-16.5) 03/30/19 05:15 Plt Count 247 X10^3/uL (150.0-450.0) 03/30/19 05:15 MPV 6.9 fL (7.4-11.0) L 03/30/19 05:15 Neut % (Auto) 73.8 % (42.0-75.0) 03/30/19 05:15 Lymph % (Auto) 16.9 % (21.0-51.0) L 03/30/19 05:15 [place] % (Auto) 8.7 % (0.0-13.0) 03/30/19 05:15 Eos % (Auto) 0.1 % (0.9-2.9) L 03/30/19 05:15 Baso % (Auto) 0.5 % (0.2-1.0) 03/30/19 05:15 Neut # (Auto) 7.9 x10^3/uL (2.2-4.8) H 03/30/19 05:15 Lymph # (Auto) 1.8 X10^3/uL (1.3-2.9) 03/30/19 05:15 [place] # (Auto) 0.9 x10^3/uL (0.3-0.8) H 03/30/19 05:15 Eos # (Auto) 0.0 x10^3/uL (0.0-0.2) 03/30/19 05:15 Baso # (Auto) 0.1 X10^3/uL (0.0-0.1) 03/30/19 05:15 Absolute Nucleated RBC 0.0 /100WBC 03/30/19 05:15 Sodium 137 mmol/L (136-145) 03/30/19 05:15 Corrected Sodium 137 mmol/L (136-145) 03/30/19 05:15 Potassium 3.9 mmol/L (3.5-5.1) 03/30/19 05:15 Chloride 103 mmol/L (98-107) 03/30/19 05:15 Carbon Dioxide 28.3 mmol/L (21-32) 03/30/19 05:15 BUN 10 mg/dL (7-18) 03/30/19 05:15 Creatinine 0.81 mg/dL (0.55-1.02) 03/30/19 05:15 Est GFR (MDRD) Af Amer > 60 (>60) 03/30/19 05:15 Est GFR (MDRD) Non-Af > 60 (>60) 03/30/19 05:15 Glucose 119 mg/dL (65-99) H 03/30/19 05:15 Calcium 7.9 mg/dL (8.5-10.1) L 03/30/19 05:15 Corrected Calcium 8.9 mg/dL (8.5-10.1) 03/30/19 05:15 Magnesium 2.1 mg/dL (1.7-2.9) 03/30/19 05:15 Total Bilirubin 0.10 mg/dL (0.2-1.0) L 03/30/19 05:15 AST 34 Units/L (15-37) 03/30/19 05:15 ALT 78 Units/L (12-78) 03/30/19 05:15 Alkaline Phosphatase 148 Units/L (46-116) H 03/30/19 05:15 Total Protein 5.9 g/dL (6.4-8.2) L 03/30/19 05:15 Albumin 2.7 g/dL (3.4-5.0) L 03/30/19 05:15 Globulin 3.2 g/dL (2.5-4.5) 03/30/19 05:15 Albumin/Globulin Ratio 0.8 Ratio (1.1-2.1) L 03/30/19 05:15 Amylase 37 Units/L (25-115) 03/27/19 16:48 Lipase 145 Units/L (73-393) 03/27/19 16:48 Specimen Type Clean catch urine 03/28/19 06:25 Urine Color Yellow (YELLOW) 03/28/19 06:25 Urine Appearance Hazy (CLEAR) 03/28/19 06:25 Urine pH 6.0 (5.0 - 8.0) 03/28/19 06:25 Ur Specific [place] 1.015 (1.000-1.030) 03/28/19 06:25 Urine Protein 1+ (NEGATIVE) 03/28/19 06:25 Urine Glucose (UA) Negative (NEGATIVE) 03/28/19 06:25 Urine Ketones Negative (NEGATIVE) 03/28/19 06:25 Urine Occult Blood 1+ (NEGATIVE) 03/28/19 06:25 Urine Nitrite Negative (NEGATIVE) 03/28/19 06:25 Urine Bilirubin Negative (NEGATIVE) 03/28/19 06:25 Urine Urobilinogen Normal (NORMAL) 03/28/19 06:25 Ur Leukocyte Esterase 3+ (NEGATIVE) 03/28/19 06:25 Urine RBC 10-20 /HPF (0-3) A 03/28/19 06:25 Urine WBC 10-20 /HPF (0-5) A 03/28/19 06:25 Ur Squamous Epith Cells Few /HPF (NEGATIVE) 03/28/19 06:25 Urine Bacteria Trace /HPF (NEGATIVE) 03/28/19 06:25 Hyaline Casts Few /LPF (NEGATIVE) 03/28/19 06:25 Urine Mucus Few /HPF (NEGATIVE) 03/28/19 06:25 Ur Culture Indicated? Yes/culture set up 03/28/19 06:25 Reason For Visit: ABDOMINAL PAIN,ILEUS VS PARTIAL SMALL BOWEL OBSTRU Discharge Date Discharge Date: 03/30/19 Discharge Diagnosis All Active Problems (Updated 03/30/19 @ 12:53 by Juan Paredes) Constipation (Acute) COPD (chronic obstructive pulmonary disease) (Chronic) Hypothyroidism (Chronic) Anxiety (Chronic) Polyneuropathy (Chronic) History of pernicious anemia (Chronic) UTI (urinary tract infection) (Acute) Ileus, unspecified (Acute) History of bowel resection (Chronic) Arthritis (Chronic) GERD (gastroesophageal reflux disease) (Chronic) Nausea & vomiting (Acute) Abdominal distension (gaseous) (Acute) Small bowel obstruction (Acute) Abdominal pain (Acute) Hypokalemia (Acute) Plan of Treatment: Continue with present treatment and follow up plan. Pt is to keep follow up appointment as instructed and take medications as ordered. Discharge Medications Discharge Medications: prednisone Allergy (Verified 03/27/19 18:04) CONTINUE taking the following medications albuterol sulfate 1 puff INHALATION TID PRN 03/28/19 [History] bupropion HCl 150 mg PO BID 03/28/19 [History] meclizine 25 mg PO TID PRN 03/28/19 [History] thyroid (pork) [[place] Thyroid] 30 mg PO DAILY 03/28/19 [History] tizanidine 4 mg PO BID 03/28/19 [History] New Prescriptions ciprofloxacin HCl 500 mg PO BID 4 Days #8 tab 03/30/19 [Rx] Follow up and Referral Follow Up: 1 Week Discharge Disposition Discharge Disposition: Home
== END 2019-03-30 13:09 | disposition home or self-care (01) | DRG 389 ==
LOC: MED/SURG 16:12
PROVIDERS: ADMIT Internal Medicine; ATTEND Internal Medicine
DX: R11.2 Nausea with vomiting, unspecified; K59.09 Other constipation; K56.51 Intestinal adhesions [bands], with partial obstruction; F32.89 Other specified depressive episodes; F41.8 Other specified anxiety disorders; E03.8 Other specified hypothyroidism; N39.0 Urinary tract infection, site not specified; R10.84 Generalized abdominal pain; Z23 Encounter for immunization; K21.9 Gastro-esophageal reflux disease without esophagitis; E87.6 Hypokalemia; R14.0 Abdominal distension (gaseous); J44.9 Chronic obstructive pulmonary disease, unspecified
CPT/HCPCS: 36415; 74000; 74018; 74176; 80053; 81001; 82150; 83690; 83735; 85025; 87086; 90674; 90686; 93005; 94640; 94760; A4216; A4222; C9113; S0106; J0744; J1170; J1650; J2060; J2405; J2920; J3480; J3490; J7030; J7613; S5010

== ENCOUNTER 2019-09-09 16:15 | Inpatient (IN) ==
[2019-09-09] MEDS ORDERED: XOPENEX 1.25 MG/3 ML NEBULE NEB ONE (16:58)
[2019-09-09] MEDS: XOPENEX 1.25 MG/3 ML NEBULE NEB SCH (17:10)
[2019-09-09] MEDS ORDERED: TUSSIONEX PENNKINETIC SUSP PO PRN (17:38)
[2019-09-09] MEDS ORDERED: NS 1/2 1000 ML IV 1,000 ML IV ONE (18:07)
[2019-09-09 18:23] VITALS: BMI 34.8
[2019-09-09 19:01] LABS: BASOPHILS % (AUTO) 0.2 % (0.2-1.0); EOSINOPHILS # (AUTO) 0.1 x10^3/uL (0.0-0.2); EOSINOPHILS % (AUTO) 0.5 % (0.9-2.9); HEMATOCRIT 43.3 % (36.0-47.0); HEMOGLOBIN 14.4 g/dL (12.0-16.0); LYMPHOCYTES # (AUTO) 0.6 X10^3/uL (1.3-2.9); LYMPHOCYTES % (AUTO) 3.9 % (21.0-51.0); MEAN CORPUSCULAR HEMOGLOBIN 29.1 pg (27.0-34.0); MEAN CORPUSCULAR HGB CONC 33.3 g/dL (33.0-35.0); MEAN CORPUSCULAR VOLUME 87.4 fL (80.0-100.0); MEAN PLATELET VOLUME 6.8 fL (7.4-11.0); MONOCYTES # (AUTO) 1.1 x10^3/uL (0.3-0.8); MONOCYTES % (AUTO) 6.8 % (0.0-13.0); NEUTROPHILS # (AUTO) 14.9 x10^3/uL (2.2-4.8); NEUTROPHILS % (AUTO) 88.6 % (42.0-75.0); PLATELET COUNT 249 X10^3/uL (150.0-450.0); RED BLOOD COUNT 4.96 X10^6/uL (3.5-5.4); RED CELL DISTRIBUTION WIDTH 14.9 % (11.6-16.5); WHITE BLOOD COUNT 16.8 X10^3/uL (3.6-10.0)
[2019-09-09 19:11] LABS: ALANINE AMINOTRANSFERASE 24 Units/L (12-78); ALBUMIN 3.9 g/dL (3.4-5.0); ALKALINE PHOSPHATASE 89 Units/L (46-116); ASPARTATE AMINO TRANSFERASE 15 Units/L (15-37); BLOOD UREA NITROGEN 21 mg/dL (7-18); CALCIUM 9.4 mg/dL (8.5-10.1); CARBON DIOXIDE 29.8 mmol/L (21-32); CHLORIDE 102 mmol/L (98-107); COR NA(FOR HYPERGLY) 141 mmol/L (136-145); SODIUM 140 mmol/L (136-145); eGFR NON BLACK RACES 29 (>60)
[2019-09-09] MEDS ORDERED: MAALOX or MYLANTA PO PRN (19:43)
[2019-09-09] MEDS: ROBITUSSIN DM PO SCH ×3 (20:13→20:18)
[2019-09-09] MEDS: FORTAZ or TAZICEF VIAL INJ 1 G in NS 100 ML IV + SPIKE MINIBAG* 100 ML IV SCH (20:19)
[2019-09-09] MEDS: RESTORIL CAP 15 MG PO PRN (20:19)
[2019-09-09] MEDS: ZOFRAN INJ 4 MG VIAL IVP PRN (20:20)
[2019-09-09] MEDS: LEVAQUIN PREMIX IV 750 MG 750 MG/150 ML BAG IV SCH (20:20)
[2019-09-09] MEDS: PEPCID 20 MG IV PREMIX* 20 MG/50 ML BAG IV SCH (20:21)
[2019-09-09] MEDS: ULTRAM PO PRN (20:24)
[2019-09-09] MEDS ORDERED: COLACE CAP 100 MG PO PRN (20:33)
[2019-09-09] MEDS ORDERED: MILK OF MAGNESIA PO PRN (20:33)
[2019-09-10] MEDS: XOPENEX 1.25 MG/3 ML NEBULE NEB SCH ×5 (00:45→18:43)
[2019-09-10 06:39] LABS: CARBON DIOXIDE 25.4 mmol/L (21-32); COR CA(FOR HYPOALB) 8.8 mg/dL (8.5-10.1); CREATININE 1.7 mg/dL (0.55-1.02); TOTAL PROTEIN 6.5 g/dL (6.4-8.2)
[2019-09-10 06:53] LABS: BASOPHILS % (AUTO) 0.2 % (0.2-1.0); EOSINOPHILS # (AUTO) 0.2 x10^3/uL (0.0-0.2); EOSINOPHILS % (AUTO) 1.6 % (0.9-2.9); HEMATOCRIT 37.5 % (36.0-47.0); HEMOGLOBIN 12.4 g/dL (12.0-16.0); LYMPHOCYTES # (AUTO) 1.8 X10^3/uL (1.3-2.9); LYMPHOCYTES % (AUTO) 16.9 % (21.0-51.0); MEAN CORPUSCULAR HGB CONC 33.1 g/dL (33.0-35.0); MEAN CORPUSCULAR VOLUME 87.5 fL (80.0-100.0); MEAN PLATELET VOLUME 7.4 fL (7.4-11.0); MONOCYTES # (AUTO) 1.1 x10^3/uL (0.3-0.8); MONOCYTES % (AUTO) 10.6 % (0.0-13.0); NEUTROPHILS # (AUTO) 7.5 x10^3/uL (2.2-4.8); NEUTROPHILS % (AUTO) 70.7 % (42.0-75.0); PLATELET COUNT 196 X10^3/uL (150.0-450.0); RED BLOOD COUNT 4.28 X10^6/uL (3.5-5.4); WHITE BLOOD COUNT 10.6 X10^3/uL (3.6-10.0)
[2019-09-10 07:07] LABS: PLATELET MORPHOLOGY COMMENT NORMAL (NORMAL)
--- NOTE | 2019-09-10 07:47 | RAD ---
HISTORYShortness of breathSTUDYCHEST, PA/LAT ADULTCOMPARISONNone availableFINDINGSThe heart is mildly enlarged. No congestive heart failure is noted. The lungs are mildly hyperinflated but free of acute infiltrates. No pleural effusions are identified. Bony thorax is unremarkable.IMPRESSIONMild cardiomegaly without congestive heart failureLungs mildly hyperinflated but clearElectronically signed by: AUDI CROWLEY (Sep 10, 2019 06:19:20)
[2019-09-10] MEDS: FORTAZ or TAZICEF VIAL INJ 1 G in NS 100 ML IV + SPIKE MINIBAG* 100 ML IV SCH ×2 (08:50→21:13)
[2019-09-10] MEDS: VSL#3 PO SCH (08:51)
[2019-09-10] MEDS: ROBITUSSIN DM PO SCH ×4 (08:52→21:14)
[2019-09-10] MEDS ORDERED: NS 1/2 1000 ML IV 1,000 ML IV ONE (09:58)
[2019-09-10] MEDS: ZOLOFT PO SCH (10:29)
[2019-09-10] MEDS: NS 1/2 1000 ML IV 1,000 ML IV SCH ×2 (10:29→22:44)
[2019-09-10] MEDS: LOVENOX INJ 30 MG SYR SC SCH (10:30)
[2019-09-10] MEDS: MIRALAX POWDER (1 DOSE 17 G) PO SCH (14:02)
[2019-09-10] MEDS: RESTORIL CAP 15 MG PO PRN ×2 (14:05→21:14)
[2019-09-10] MEDS: ZOFRAN INJ 4 MG VIAL IVP PRN (14:05)
[2019-09-10] MEDS ORDERED: XOPENEX 1.25 MG/3 ML NEBULE NEB SCH (18:00)
[2019-09-10] MEDS: PULMICORT NEB TX 0.5 MG NEB SCH (20:31)
[2019-09-10] MEDS: PEPCID 20 MG IV PREMIX* 20 MG/50 ML BAG IV SCH (21:13)
[2019-09-10] MEDS: ULTRAM PO PRN (21:14)
--- NOTE | 2019-09-10 22:01 | DR.UPDATE ---
H&P Update History and Physical Update: History and Physical reviewed and patient examined. Changes noted: Yes with the following: WAS SEEN IN THE OFFICE FOR COMPLAINTS A PERSISTENT, PRODUCTIVE COUGH AND SHORTNESS OF BREATH. SHE HAS TAKEN CEFDINIR 300MG PO BID X 10 DAYS, A MEDROL DOSEPACK, PREDNISONE 10MG PO DAILY, AND RESPIRATORY TX WITHOUT IMPROVEMENT IN SYMPTOMS. SHE WAS ADMITTED FOR FURTHER EVALUATION AND TREATMENT OF PNEUMONIA AND COPD EXACERBATION. ON ARRIVAL TO THE HOSPITAL, VITALS WERE 98.1-106-24-94%-126/59. LABS WERE OBTAINED. ABNORMAL LAB VALUES INCLUDE THE FOLLOWING: WBC 16.8, BUN 21, CREATININE 1.80, GLUCOSE 144. BLOOD AND SPUTUM CULTURES WERE SET UP. A CHEST XRAY WAS OBTAINED AND REVEALED: The heart is mildly enlarged. No congestive heart failure is noted. The lungs are mildly hyperinflated but free of acute infiltrates. No pleural effusions are identified. Bony thorax is unremarkable. SHE WAS STARTED ON 1/2NS AT 75 ML/HR, IV FORTAZ, IV LEVAQUIN, RESPIRATORY TX, SUPPLEMENTAL OXYGEN, AND HOME MEDS WERE RESUMED. WE WILL CONTINUE WITH CURRENT PLAN OF CARE TODAY. OTHERWISE, WE WILL FOLLOW UP WITH AM LABS AND CONTINUE TO MONITOR. Prescription drug monitoring program results: PDMP reviewed and no concerns identified H&P Reviewed: Yes Patient was examined?: Yes
[2019-09-11] MEDS: XOPENEX 1.25 MG/3 ML NEBULE NEB SCH ×4 (00:45→17:04)
[2019-09-11] MEDS ORDERED: NS 1/2 1000 ML IV 1,000 ML IV ONE ×2 (04:38→19:01)
[2019-09-11] MEDS: NS 1/2 1000 ML IV 1,000 ML IV SCH ×3 (04:44→19:02)
--- NOTE | 2019-09-11 06:37 | RAD ---
HISTORYFollow-up pneumoniaSTUDYCHEST, 1 [id number] heart is mildly enlarged. No congestive heart failure is noted. No acute alveolar infiltrates or pleural effusions are identified. The bony thorax is unremarkable.IMPRESSIONCardiomegaly without congestive heart failureNo definite infiltratesElectronically signed by: AUDI CROWLEY (Sep 11, 2019 06:36:20)
[2019-09-11 06:53] LABS: BASOPHILS % (AUTO) 0.3 % (0.2-1.0); EOSINOPHILS # (AUTO) 0.2 x10^3/uL (0.0-0.2); EOSINOPHILS % (AUTO) 2.3 % (0.9-2.9); HEMOGLOBIN 11.4 g/dL (12.0-16.0); LYMPHOCYTES # (AUTO) 1.7 X10^3/uL (1.3-2.9); LYMPHOCYTES % (AUTO) 24.6 % (21.0-51.0); MEAN CORPUSCULAR HEMOGLOBIN 29.2 pg (27.0-34.0); MEAN CORPUSCULAR HGB CONC 33.6 g/dL (33.0-35.0); MEAN PLATELET VOLUME 6.8 fL (7.4-11.0); MONOCYTES # (AUTO) 0.6 x10^3/uL (0.3-0.8); MONOCYTES % (AUTO) 8.8 % (0.0-13.0); NEUTROPHILS # (AUTO) 4.4 x10^3/uL (2.2-4.8); PLATELET COUNT 185 X10^3/uL (150.0-450.0); RED BLOOD COUNT 3.91 X10^6/uL (3.5-5.4); RED CELL DISTRIBUTION WIDTH 14.9 % (11.6-16.5); WHITE BLOOD COUNT 6.9 X10^3/uL (3.6-10.0)
[2019-09-11 06:54] LABS: ALANINE AMINOTRANSFERASE 18 Units/L (12-78); ALBUMIN 2.9 g/dL (3.4-5.0); ALKALINE PHOSPHATASE 81 Units/L (46-116); ASPARTATE AMINO TRANSFERASE 12 Units/L (15-37); BLOOD UREA NITROGEN 15 mg/dL (7-18); CALCIUM 8.4 mg/dL (8.5-10.1); CARBON DIOXIDE 28.1 mmol/L (21-32); CHLORIDE 106 mmol/L (98-107); COR CA(FOR HYPOALB) 9.3 mg/dL (8.5-10.1); CREATININE 0.88 mg/dL (0.55-1.02); SODIUM 139 mmol/L (136-145); TOTAL PROTEIN 6.4 g/dL (6.4-8.2); eGFR NON BLACK RACES > 60 (>60)
[2019-09-11] MEDS: PULMICORT NEB TX 0.5 MG NEB SCH ×2 (08:47→21:11)
--- NOTE | 2019-09-11 10:33 | PCM.PROG ---
Progress Note - Progress Note for Day of Date of Exam: 09/11/19 - Past Medical Family Social History Past Med/Fam/Surg Hx: No changes since H&P Allergies: Allergies prednisone Allergy (Intermediate, Verified 09/09/19 20:38) HEADACHE pt states she is able to take predisone if absolutely needed but causes headaches. - Review of Systems ROS: No change since H&P - Vital Signs and I&O's Vital Signs: Temperature 98.7 F Pulse Rate [Left Brachial] 78 Pulse Rate 81 Respiratory Rate 18 Blood Pressure [Right Arm] 132/63 Blood Pressure [Left Arm] 143/56 Blood Pressure 159/73 O2 Sat by Pulse Oximetry 96 Intake and Output: Intake & Output 09/08/19 09/09/19 09/10/19 09/11/19 11:59 11:59 11:59 11:59 Intake Total 1994 1140 / 1140 Output Total 3075 / 3075 Balance 1994 -1934 / -1934 - Physical Exam Oriented: Normal Eyes: Normal Ear: Normal Nose: Normal Throat: Normal Respiratory: Generalized, Wheezes Cardiovascular: Normal. negative: S3, S4, Murmur : Normal Auscultation: Bowel Sounds: Normal Palpation: Normal Tenderness: Normal Skin: Normal Musculoskeletal: Normal Psychiatric: Normal Mood Description: Calm Affect: Normal Speech Pattern: Clear, Appropriate - Laboratory and Diagnostics Result Diagrams: 09/11/19 05:22 09/11/19 05:22 Labs: 09/09/19 18:20 Sputum - Expectorated Sputum Sputum Culture - Final 09/09/19 18:20 Sputum - Expectorated Sputum - Final 09/09/19 18:49 Blood Blood Culture - Preliminary 09/09/19 18:00 Blood Blood Culture - Preliminary Laboratory WBC 6.9 X10^3/uL (3.6-10.0) 09/11/19 05:22 RBC 3.91 X10^6/uL (3.5-5.4) 09/11/19 05:22 Hgb 11.4 g/dL (12.0-16.0) L 09/11/19 05:22 Hct 34.0 % (36.0-47.0) L 09/11/19 05:22 MCV 87.0 fL (80.0-100.0) 09/11/19 05:22 MCH 29.2 pg (27.0-34.0) 09/11/19 05:22 MCHC 33.6 g/dL (33.0-35.0) 09/11/19 05:22 RDW 14.9 % (11.6-16.5) 09/11/19 05:22 Plt Count 185 X10^3/uL (150.0-450.0) 09/11/19 05:22 Plt Count Comment Adequate (ADEQUATE) 09/10/19 05:47 MPV 6.8 fL (7.4-11.0) L 09/11/19 05:22 Neut % (Auto) 64.0 % (42.0-75.0) 09/11/19 05:22 Lymph % (Auto) 24.6 % (21.0-51.0) 09/11/19 05:22 [place] % (Auto) 8.8 % (0.0-13.0) 09/11/19 05:22 Eos % (Auto) 2.3 % (0.9-2.9) 09/11/19 05:22 Baso % (Auto) 0.3 % (0.2-1.0) 09/11/19 05:22 Neut # (Auto) 4.4 x10^3/uL (2.2-4.8) 09/11/19 05:22 Lymph # (Auto) 1.7 X10^3/uL (1.3-2.9) 09/11/19 05:22 [place] # (Auto) 0.6 x10^3/uL (0.3-0.8) 09/11/19 05:22 Eos # (Auto) 0.2 x10^3/uL (0.0-0.2) 09/11/19 05:22 Baso # (Auto) 0.0 X10^3/uL (0.0-0.1) 09/11/19 05:22 Absolute Nucleated RBC 0.0 /100WBC 09/11/19 05:22 Plt Clumps, EDTA Few 09/10/19 05:47 Plt Morphology Comment Normal (NORMAL) 09/10/19 05:47 RBC Morphology Normal (NORMAL) 09/10/19 05:47 Sodium 139 mmol/L (136-145) 09/11/19 05:22 Corrected Sodium TNP 09/11/19 05:22 Potassium 4.0 mmol/L (3.5-5.1) 09/11/19 05:22 Chloride 106 mmol/L (98-107) 09/11/19 05:22 Carbon Dioxide 28.1 mmol/L (21-32) 09/11/19 05:22 BUN 15 mg/dL (7-18) 09/11/19 05:22 Creatinine 0.88 mg/dL (0.55-1.02) 09/11/19 05:22 Est GFR (MDRD) Af Amer > 60 (>60) 09/11/19 05:22 Est GFR (MDRD) Non-Af > 60 (>60) 09/11/19 05:22 Glucose 104 mg/dL (65-99) H 09/11/19 05:22 Calcium 8.4 mg/dL (8.5-10.1) L 09/11/19 05:22 Corrected Calcium 9.3 mg/dL (8.5-10.1) 09/11/19 05:22 Total Bilirubin 0.30 mg/dL (0.2-1.0) 09/11/19 05:22 AST 12 Units/L (15-37) L 09/11/19 05:22 ALT 18 Units/L (12-78) 09/11/19 05:22 Alkaline Phosphatase 81 Units/L (46-116) 09/11/19 05:22 Total Protein 6.4 g/dL (6.4-8.2) 09/11/19 05:22 Albumin 2.9 g/dL (3.4-5.0) L 09/11/19 05:22 Globulin 3.5 g/dL (2.5-4.5) 09/11/19 05:22 Albumin/Globulin Ratio 0.8 Ratio (1.1-2.1) L 09/11/19 05:22 - Plan (1) Pneumonia Status: Acute Qualifiers: Pneumonia type: due to unspecified organism Laterality: unspecified laterality Plan: 1/2NS AT 75 ML/HR, IV FORTAZ, IV LEVAQUIN, RESPIRATORY TX, SUPPLEMENTAL OXYGEN, SOLU-MEDROL, CONTINUE TO MONITOR (2) COPD exacerbation Status: Acute
[2019-09-11] MEDS: MIRALAX POWDER (1 DOSE 17 G) PO SCH (10:34)
[2019-09-11] MEDS: VSL#3 PO SCH ×2 (10:35→10:36)
[2019-09-11] MEDS: ZOLOFT PO SCH (10:35)
[2019-09-11] MEDS: LOVENOX INJ 30 MG SYR SC SCH (10:35)
[2019-09-11] MEDS: ROBITUSSIN DM PO SCH ×4 (10:36→20:45)
[2019-09-11] MEDS: SOLU-Medrol 40 MG VIAL IVP SCH ×3 (10:36→21:13)
[2019-09-11] MEDS: FORTAZ or TAZICEF VIAL INJ 1 G in NS 100 ML IV + SPIKE MINIBAG* 100 ML IV SCH ×2 (10:37→20:45)
[2019-09-11] MEDS: PEPCID 20 MG IV PREMIX* 20 MG/50 ML BAG IV SCH (20:44)
[2019-09-11] MEDS: RESTORIL CAP 15 MG PO PRN (20:44)
[2019-09-11] MEDS: LEVAQUIN PREMIX IV 750 MG 750 MG/150 ML BAG IV SCH (21:14)
[2019-09-12] MEDS: XOPENEX 1.25 MG/3 ML NEBULE NEB SCH ×2 (00:42→05:51)
[2019-09-12] MEDS: NS 1/2 1000 ML IV 1,000 ML IV SCH (02:03)
[2019-09-12 06:09] LABS: BASOPHILS % (AUTO) 0.3 % (0.2-1.0); HEMATOCRIT 33.2 % (36.0-47.0); HEMOGLOBIN 11.1 g/dL (12.0-16.0); LYMPHOCYTES # (AUTO) 0.5 X10^3/uL (1.3-2.9); LYMPHOCYTES % (AUTO) 9.4 % (21.0-51.0); MEAN CORPUSCULAR HEMOGLOBIN 29.1 pg (27.0-34.0); MEAN CORPUSCULAR HGB CONC 33.5 g/dL (33.0-35.0); MEAN PLATELET VOLUME 6.9 fL (7.4-11.0); MONOCYTES # (AUTO) 0.1 x10^3/uL (0.3-0.8); MONOCYTES % (AUTO) 1.7 % (0.0-13.0); NEUTROPHILS # (AUTO) 4.9 x10^3/uL (2.2-4.8); NEUTROPHILS % (AUTO) 88.6 % (42.0-75.0); PLATELET COUNT 208 X10^3/uL (150.0-450.0); RED BLOOD COUNT 3.82 X10^6/uL (3.5-5.4); RED CELL DISTRIBUTION WIDTH 14.6 % (11.6-16.5); WHITE BLOOD COUNT 5.6 X10^3/uL (3.6-10.0)
[2019-09-12 06:14] LABS: ALANINE AMINOTRANSFERASE 18 Units/L (12-78); ALKALINE PHOSPHATASE 89 Units/L (46-116); ASPARTATE AMINO TRANSFERASE 8 Units/L (15-37); BLOOD UREA NITROGEN 13 mg/dL (7-18); CALCIUM 8.5 mg/dL (8.5-10.1); CARBON DIOXIDE 28.8 mmol/L (21-32); CHLORIDE 106 mmol/L (98-107); COR CA(FOR HYPOALB) 9.3 mg/dL (8.5-10.1); COR NA(FOR HYPERGLY) 141 mmol/L (136-145); CREATININE 0.79 mg/dL (0.55-1.02); SODIUM 140 mmol/L (136-145); TOTAL PROTEIN 6.7 g/dL (6.4-8.2); eGFR NON BLACK RACES > 60 (>60)
[2019-09-12] MEDS: SOLU-Medrol 40 MG VIAL IVP SCH (06:23)
--- NOTE | 2019-09-12 07:46 | RAD ---
HISTORYPNEUMONIASTUDYPortable AP chestCOMPARISONYesterday September 10FINDINGSThere is unchanged mild cardiomegaly. The lungs are grossly clear. There is no obvious pleural effusion. There are degenerative changes of the glenohumeral joints.IMPRESSIONUnchanged mild cardiomegaly, no definite acute disease.Electronically signed by: ATIF QUIROZ (Sep 12, 2019 07:45:02)
[2019-09-12] MEDS: PULMICORT NEB TX 0.5 MG NEB SCH (08:55)
[2019-09-12] MEDS: VSL#3 PO SCH (09:11)
[2019-09-12] MEDS: ROBITUSSIN DM PO SCH (09:12)
[2019-09-12] MEDS: MIRALAX POWDER (1 DOSE 17 G) PO SCH (09:12)
[2019-09-12] MEDS: FORTAZ or TAZICEF VIAL INJ 1 G in NS 100 ML IV + SPIKE MINIBAG* 100 ML IV SCH (09:13)
[2019-09-12] MEDS: LOVENOX INJ 30 MG SYR SC SCH (09:13)
[2019-09-12] MEDS: ZOLOFT PO SCH (09:17)
[2019-09-12] MEDS: ULTRAM PO PRN (09:18)
[2019-09-12 11:09] VITALS: BP 121/57
== END 2019-09-12 10:50 | disposition home or self-care (01) | DRG 194 ==
LOC: MED/SURG 16:35
PROVIDERS: ADMIT Internal Medicine; ATTEND Internal Medicine
DX: J44.1 Chronic obstructive pulmonary disease with (acute) exacerbation; F41.8 Other specified anxiety disorders; I95.89 Other hypotension; J18.0 Bronchopneumonia, unspecified organism; M19.90 Unspecified osteoarthritis, unspecified site; R06.02 Shortness of breath
CPT/HCPCS: 36415; 71010; 71020; 71045; 71046; 80053; 85025; 87040; 87070; 87205; 94640; 94760; A4222; J0713; J1650; J1956; J2405; J2920; J7050; J7626; S0028

== ENCOUNTER 2023-09-27 12:33 | Observation (INO) ==
--- NOTE | 2023-09-27 12:58 | ED.ABDFE ---
HPI Time Seen Time Seen by Provider: 09/27/23 12:58 PCP Primary Care Physician: TODD [facility] Chief Complaint Comments: 73-year-old female presents for evaluation. Started feeling poorly last p.m.. Developed abdominal discomfort, distention, nausea vomiting. Was having diarrhea several times last p.m.. Recently admitted to hospital for small bowel obstruction. Denies fever, chills, URI symptoms. No urinary issues. Discomfort worse with moving. Nothing makes it better. Chief Complaint:: MID-UPPER ABD PAIN COVID-19 Coronavirus risk:travel/contact w/high risk person: No Has patient experienced Coronavirus symptoms: No Reviewed Nurses Notes Review: Yes Source History Provided: Patient Mode of arrival Mode of Arrival: Wheelchair Timing Onset of Chief Complaint: 09/27/23 PMH PMH Past Medical History: Yes Past Medical History: Anxiety, Arthritis, COPD, Depression, GERD and Hypothyroidism Past Surgical History: Yes Surgical History: Bowel Resection, Hysterectomy and Joint Replacement Family History History of Family Medical Conditions: Yes Family Medical History: Cancer and [place] Social History Does patient currently use any type of tobacco product: No Have you used tobacco products in the last 12 months: No Type of Tobacco Use: None Does any household member use tobacco: No Alcohol Use: None Do you use any recreational Drugs:: No Lives With: Alone Lives Where: Home Travel Risk Coronavirus risk:travel/contact w/high risk person: No Has patient experienced Coronavirus symptoms: No Infectious screening In the last 2 months have you had wt loss of >10#?: NO Have you had fever, night sweats or hemotysis?: No Have you traveled outside the country in the last 6 months?: No Isolation: Standard ROS Review of Systems Constitutional: Weakness Eyes: No Symptoms Reported ENTM: No Symptoms Reported Respiratoy: No Symptoms Reported Cardiovascular: No Symptoms Reported Gastrointestinal/Abdominal: See HPI Genitourinary: No Symptoms Reported Neurological: No Symptoms Reported Musculoskeletal: No Symptoms Reported Integumentary: No Symptoms Reported Hematologic/Lymphatic: No Symptoms Reported All Other Systems: Reviewed and Negative PE Vital Signs Vitals: Vital Signs Temperature 98.4 F Temperature 98.4 F Pulse Rate 85 Pulse Rate 85 Pulse Rate 85 Pulse Rate 86 Pulse Rate 90 Pulse Rate 103 Pulse Rate 91 Pulse Rate 91 Pulse Rate 92 Pulse Rate 99 Pulse Rate 97 Pulse Rate 91 Pulse Rate 91 Pulse Rate 95 Pulse Rate 117 Pulse Rate 112 Pulse Rate 114 Respiratory Rate 22 Respiratory Rate 21 Respiratory Rate 24 Respiratory Rate 24 Respiratory Rate 23 Respiratory Rate 16 Respiratory Rate 21 Respiratory Rate 23 Respiratory Rate 23 Respiratory Rate 24 Respiratory Rate 37 Respiratory Rate 32 Respiratory Rate 23 Respiratory Rate 34 Respiratory Rate 22 Respiratory Rate 26 Blood Pressure 119/58 Blood Pressure 137/63 Blood Pressure 137/63 Blood Pressure 137/63 Blood Pressure 94/37 Blood Pressure 105/57 Blood Pressure 128/55 Blood Pressure 128/55 O2 Sat by Pulse Oximetry 91 O2 Sat by Pulse Oximetry 90 O2 Sat by Pulse Oximetry 95 O2 Sat by Pulse Oximetry 94 O2 Sat by Pulse Oximetry 89 O2 Sat by Pulse Oximetry 94 O2 Sat by Pulse Oximetry 90 O2 Sat by Pulse Oximetry 95 O2 Sat by Pulse Oximetry 88 General General Appearance: Alert and In No Apparent Distress Eyes Eye exam: PERRL and EOMI ENT ENT Exam: Mucous Membranes Moist Neck Neck Exam: Normal Inspection Respiratory Respiratory Exam: Normal Lung Sounds Bilat; negative Accessory Muscle Use or Respiratory Distress Cardiovascular Cardiovascular Exam: Regular Rate, Normal Rhythm and Normal Heart Sounds Abdominal Exam Abdominal Exam: Soft, Distention and Tenderness (all quadrants, no guarding or rebound. ) Extremeties Extremities Exam: Normal Inspection Neurologic Neurological Exam: Alert, Oriented X3 and CN II-XII Intact; negative Motor Sensory Deficit Skin Skin Exam: Warm and Dry COURSE Treatment Treatment: 73 y/o female with nausea, vomiting, diarrhea and abdominal distention since last p.m.. Recently admitted for small bowel obstruction. Workup initiated . Patient was given IV fluids, IV Zofran. labs overall acceptable. CT of the abdomen pelvis without contrast (poor IV access) shows small bowel structure to be present. Patient not a fan of NG tube, she prefers not to have one. Discussed with Dr. Landaverde, he will consult. Discussed with Dr. Morales, covering for Dr. Kahn, she will admit. Patient given IV Protonix. ROR Labs Reviewed Laboratory Results Reviewed?: Yes 09/27/23 13:05 09/27/23 13:05 Laboratory: WBC 10.2 X10^3/uL (3.6-10.0) H 09/27/23 13:05 RBC 4.98 X10^6/uL (3.5-5.4) 09/27/23 13:05 Hgb 14.7 g/dL (12.0-16.0) 09/27/23 13:05 Hct 44.0 % (36.0-47.0) 09/27/23 13:05 MCV 88.4 fL (80.0-100.0) 09/27/23 13:05 MCH 29.5 pg (27.0-34.0) 09/27/23 13:05 MCHC 33.3 g/dL (33.0-35.0) 09/27/23 13:05 RDW 15.4 % (11.6-16.5) 09/27/23 13:05 Plt Count 288 X10^3/uL (150.0-450.0) 09/27/23 13:05 MPV 7.0 fL (7.4-11.0) L 09/27/23 13:05 Neut % (Auto) 86.0 % (42.0-75.0) H 09/27/23 13:05 Lymph % (Auto) 4.2 % (21.0-51.0) L 09/27/23 13:05 [place] % (Auto) 9.2 % (0.0-13.0) 09/27/23 13:05 Eos % (Auto) 0.3 % (0.9-2.9) L 09/27/23 13:05 Baso % (Auto) 0.3 % (0.2-1.0) 09/27/23 13:05 Neut # (Auto) 8.8 x10^3/uL (2.2-4.8) H 09/27/23 13:05 Lymph # (Auto) 0.4 X10^3/uL (1.3-2.9) L 09/27/23 13:05 [place] # (Auto) 0.9 x10^3/uL (0.3-0.8) H 09/27/23 13:05 Eos # (Auto) 0.0 x10^3/uL (0.0-0.2) 09/27/23 13:05 Baso # (Auto) 0.0 X10^3/uL (0.0-0.1) 09/27/23 13:05 Absolute Nucleated RBC 0.1 /100WBC 09/27/23 13:05 Sodium 138 mmol/L (136-145) 09/27/23 13:05 Corrected Sodium 140 mmol/L (136-145) 09/27/23 13:05 Potassium 4.2 mmol/L (3.5-5.1) 09/27/23 13:05 Chloride 102 mmol/L (98-107) 09/27/23 13:05 Carbon Dioxide 26.0 mmol/L (21-32) 09/27/23 13:05 BUN 19 mg/dL (7-18) H 09/27/23 13:05 Creatinine 1.28 mg/dL (0.55-1.02) H 09/27/23 13:05 Est GFR (MDRD) Af Amer 52 (>60) L 09/27/23 13:05 Est GFR (MDRD) Non-Af 43 (>60) L 09/27/23 13:05 Glucose 178 mg/dL (65-99) H 09/27/23 13:05 Lactic Acid 1.9 mmol/L (0.4-2.0) 09/27/23 13:05 Calcium 8.9 mg/dL (8.5-10.1) 09/27/23 13:05 Corrected Calcium TNP 09/27/23 13:05 Total Bilirubin 1.00 mg/dL (0.2-1.0) 09/27/23 13:05 AST 18 Units/L (15-37) 09/27/23 13:05 ALT 36 Units/L (12-78) 09/27/23 13:05 Alkaline Phosphatase 117 Units/L (46-116) H 09/27/23 13:05 Total Protein 7.9 g/dL (6.4-8.2) 09/27/23 13:05 Albumin 3.6 g/dL (3.4-5.0) 09/27/23 13:05 Globulin 4.3 g/dL (2.5-4.5) 09/27/23 13:05 Albumin/Globulin Ratio 0.8 Ratio (1.1-2.1) L 09/27/23 13:05 Lipase 16 Units/L (16-77) 09/27/23 13:05 Labs acceptable XRAY XRAY Interpreted by: Both X-ray Results: EXAM: ABDOMEN/PELVIS W/O CON HISTORY: Upper abdominal pain TECHNIQUE: Axial noncontrast images with coronal and sagittal reformats. Dose reduction procedures were used with mA/kv adjusted for body size. This examination is limited due to the lack of intravenous and oral contrast. The examination was performed in this manner at the sole direction of the ordering caregiver. COMPARISON: 03/27/2019 FINDINGS: Lung bases are clear. Heart appears mildly enlarged. The liver, spleen, a drenal glands, are within normal limits but only to the limitations of an unenhanced examination patient is status post cholecystectomy. Kidneys are unobstructed and without stones. No ureteral calculi are calcific atherosclerotic change is present in the nondilated abdominal aorta. No intraperitoneal or retroperitoneal lymphadenopathy of significance is identified. Appendix not identified. There are no secondary signs of appendicitis present. There are no findings suggestive of colitis or diverticulitis. Patient appears to be status post partial small-bowel resection. There are multiple more proximal small bowel loops which are dilated and air and fluid-filled. There appears to be a transition to more normal sized small bowel in the lower midabdomen. This suggests a partial small bowel obstruction of uncertain etiology. It is of note that several of the dilated small bowel loops demonstrate mild transmural thickening which could indicate associated acute enteritis or developing bowel wall ischemia. Ischemia must be clinically excluded. Surgical evaluation is recommended no pelvic masses, pelvic fluid, or pelvic lymphadenopathy is identified. No bladder abnormalities identified. No lytic or blastic skeletal lesions of significance are identified. No lytic or blastic skeletal lesions are identified. Postsurgical changes are present in the lower lumbar spine with hardware present. IMPRESSION: Status post partial small-bowel resection Findings suggestive of a partial mid to distal small bowel obstruction of uncertain etiology and with transmural thickening in several of the dilated small bowel loops which could indicate developing ischemia or associated e nteritis. Ischemia is should be clinically excluded. Surgical evaluation is recommended. THIS IS AN ELECTRONICALLY VERIFIED FINAL REPORT 09/27/2023 2:21 PM - Electronically signed by Sukhdeep Luna MD Opioid Opioid Risk Tool Age ([place]erminio box if 16-45): No History of Preadolescent Sexual Abuse: No Total: 0 Total Score Risk Category: Low Risk Copyright: Tye HWANG predicting aberrant behaviors Discharge Plan Diagnosis Discharge Problem: Small bowel obstruction Discharge Plan Patient Disposition: ADMITTED INPATIENT Condition: Stable Orders to Discharge Patient Discharge Orders: Transfer (Routine); Ordered 09/27/23 Ordered By: Lio Hartman
[2023-09-27] MEDS: NS 500 ML IV 500 ML IV ONE ×2 (13:15→13:16)
[2023-09-27] MEDS: ZOFRAN INJ 4 MG VIAL IVP ONE (13:15)
[2023-09-27] MEDS: ZOFRAN INJ 4 MG VIAL ONE (13:16)
[2023-09-27 13:19] LABS: MEAN CORPUSCULAR VOLUME 88.4 fL (80.0-100.0)
[2023-09-27 13:22] LABS: BASOPHILS % (AUTO) 0.3 % (0.2-1.0); EOSINOPHILS % (AUTO) 0.3 % (0.9-2.9); HEMOGLOBIN 14.7 g/dL (12.0-16.0); LYMPHOCYTES # (AUTO) 0.4 X10^3/uL (1.3-2.9); LYMPHOCYTES % (AUTO) 4.2 % (21.0-51.0); MEAN CORPUSCULAR HEMOGLOBIN 29.5 pg (27.0-34.0); MEAN CORPUSCULAR HGB CONC 33.3 g/dL (33.0-35.0); MONOCYTES # (AUTO) 0.9 x10^3/uL (0.3-0.8); MONOCYTES % (AUTO) 9.2 % (0.0-13.0); NEUTROPHILS # (AUTO) 8.8 x10^3/uL (2.2-4.8); PLATELET COUNT 288 X10^3/uL (150.0-450.0); RED BLOOD COUNT 4.98 X10^6/uL (3.5-5.4); RED CELL DISTRIBUTION WIDTH 15.4 % (11.6-16.5); WHITE BLOOD COUNT 10.2 X10^3/uL (3.6-10.0)
[2023-09-27 13:31] LABS: ALANINE AMINOTRANSFERASE 36 Units/L (12-78); ALBUMIN 3.6 g/dL (3.4-5.0); ALKALINE PHOSPHATASE 117 Units/L (46-116); ASPARTATE AMINO TRANSFERASE 18 Units/L (15-37); BLOOD UREA NITROGEN 19 mg/dL (7-18); CALCIUM 8.9 mg/dL (8.5-10.1); CHLORIDE 102 mmol/L (98-107); COR NA(FOR HYPERGLY) 140 mmol/L (136-145); CREATININE 1.28 mg/dL (0.55-1.02); GLUCOSE 178 mg/dL (65-99); LIPASE 16 Units/L (16-77); POTASSIUM 4.2 mmol/L (3.5-5.1); SODIUM 138 mmol/L (136-145); TOTAL PROTEIN 7.9 g/dL (6.4-8.2); eGFR NON BLACK RACES 43 (>60)
--- NOTE | 2023-09-27 14:24 | CT ---
EXAM:ABDOMEN/PELVIS W/O CONHISTORY:Upper abdominal painTECHNIQUE:Axial noncontrast images with coronal and sagittal reformats. Dose reduction procedures were used with mA/kv adjusted for body size. This examination is limited due to the lack of intravenous and oral contrast. The examination was performed in this manner at the sole direction of the ordering caregiver.COMPARISON:03/27/2019FINDINGS: Lung bases are clear. Heart appears mildly enlarged. The liver, spleen, adrenal glands, are within normal limits but only to the limitations of an unenhanced examination patient is status post cholecystectomy. Kidneys are unobstructed and without stones. No ureteral calculi are calcific atherosclerotic change is present in the nondilated abdominal aorta. No intraperitoneal or retroperitoneal lymphadenopathy of significance is identified. Appendix not identified. There are no secondary signs of appendicitis present. There are no findings suggestive of colitis or diverticulitis. Patient appears to be status post partial small-bowel resection. There are multiple more proximal small bowel loops which are dilated and air and fluid-filled. There appears to be a transition to more normal sized small bowel in the lower midabdomen. This suggests a partial small bowel obstruction of uncertain etiology. It is of note that several of the dilated small bowel loops demonstrate mild transmural thickening which could indicate associated acute enteritis or developing bowel wall ischemia. Ischemia must be clinically excluded. Surgical evaluation is recommended no pelvic masses, pelvic fluid, or pelvic lymphadenopathy is identified. No bladder abnormalities identified. No lytic or blastic skeletal lesions of significance are identified. No lytic or blastic skeletal lesions are identified. Postsurgical changes are present in the lower lumbar spine with hardware present.IMPRESSION:Status post partial small-bowel resectionFindings suggestive of a partial mid to distal small bowel obstruction of uncertain etiology and with transmural thickening in several of the dilated small bowel loops which could indicate developing ischemia or associated enteritis. Ischemia is should be clinically excluded. Surgical evaluation is recommended.THIS IS AN ELECTRONICALLY VERIFIED FINAL REPORT09/27/2023 2:21 PM - Electronically signed by Sukhdeep Luna MD
[2023-09-27] MEDS ORDERED: VENTOLIN or PROAIR HFA IN PRN (18:25)
[2023-09-27] MEDS ORDERED: PROVENTIL NEB TX 0.083% 2.5MG/ 3ML NEB PRN (18:36)
[2023-09-27] MEDS: CONSULT PHARMACY - POTASSIUM & MAGNESIUM XX SCH (19:47)
[2023-09-27] MEDS: PROTONIX INJ 40 MG VIAL IVP SCH (20:24)
[2023-09-27] MEDS: D5 NS 1,000 ML IV 1,000 ML IV SCH (20:30)
[2023-09-27] MEDS: PULMICORT NEB TX 0.5 MG NEB SCH (21:39)
[2023-09-27 21:49] VITALS: BMI 37.4
[2023-09-27] MEDS: ZOFRAN INJ 4 MG VIAL IVP PRN (22:12)
[2023-09-28 06:20] LABS: BASOPHILS % (AUTO) 0.4 % (0.2-1.0); EOSINOPHILS % (AUTO) 0.4 % (0.9-2.9); HEMATOCRIT 39.2 % (36.0-47.0); HEMOGLOBIN 13.1 g/dL (12.0-16.0); LYMPHOCYTES % (AUTO) 15.6 % (21.0-51.0); MEAN CORPUSCULAR HEMOGLOBIN 29.3 pg (27.0-34.0); MEAN CORPUSCULAR HGB CONC 33.4 g/dL (33.0-35.0); MEAN CORPUSCULAR VOLUME 87.6 fL (80.0-100.0); MONOCYTES # (AUTO) 0.8 x10^3/uL (0.3-0.8); MONOCYTES % (AUTO) 13.4 % (0.0-13.0); NEUTROPHILS # (AUTO) 4.3 x10^3/uL (2.2-4.8); NEUTROPHILS % (AUTO) 70.2 % (42.0-75.0); PLATELET COUNT 248 X10^3/uL (150.0-450.0); RED BLOOD COUNT 4.48 X10^6/uL (3.5-5.4); WHITE BLOOD COUNT 6.2 X10^3/uL (3.6-10.0)
[2023-09-28 06:33] LABS: CALCIUM 8.3 mg/dL (8.5-10.1); CARBON DIOXIDE 25.8 mmol/L (21-32); COR CA(FOR HYPOALB) 9.1 mg/dL (8.5-10.1); CREATININE 2.27 mg/dL (0.55-1.02); POTASSIUM 3.7 mmol/L (3.5-5.1)
[2023-09-28] MEDS ORDERED: PATIENT'S HOME MEDICATION (Fluticasone-Umeclidin-Vilanter [Trelegy Ellipta] 100-62.5-25 mc IN SCH (09:00)
[2023-09-28] MEDS: NS 1,000 ML IV 1,000 ML IV SCH (09:51)
--- NOTE | 2023-09-28 09:56 | DR.PROGNOT ---
HOSPITAL PROGRESS NOTE Progress Note for Day of: Progress Note Date: 09/28/23 Chief Complaint Chief Complaint: feeling better today , no nausea, no vomiting . passing flatus , no BM . WBC is normal . afebrile . Past Medical Family Social History Past Med/Fam/Surg Hx: No changes since H&P Allergies: Allergies prednisone Allergy (Intermediate, Verified 09/09/19 20:38) HEADACHE pt states she is able to take predisone if absolutely needed but causes headaches. Vital Signs Vital Signs: Vital Signs Temperature 98.3 F Temperature 98.2 F Pulse Rate [Brachial] 79 Pulse Rate [Brachial] 72 Pulse Rate 82 Respiratory Rate 18 Respiratory Rate 20 Blood Pressure [Left Arm] 103/54 Blood Pressure [Left Arm] 98/49 O2 Sat by Pulse Oximetry 96 O2 Sat by Pulse Oximetry 95 O2 Sat by Pulse Oximetry 95 Physical Exam Oriented: Normal Eyes: Normal Throat: Normal Respiratory: Normal Cardiovascular: Normal GI:Auscultation: Decreased GI: Tenderness: Other (soft abdomen with moderate distention ..mild diffuse tenderness , BS+) Speech Pattern: Appropriate and Unclear Laboratory and Diagnostics 09/28/23 05:45 09/28/23 06:04 Labs: Laboratory WBC 6.2 X10^3/uL (3.6-10.0) 09/28/23 05:45 RBC 4.48 X10^6/uL (3.5-5.4) 09/28/23 05:45 Hgb 13.1 g/dL (12.0-16.0) 09/28/23 05:45 Hct 39.2 % (36.0-47.0) 09/28/23 05:45 MCV 87.6 fL (80.0-100.0) 09/28/23 05:45 MCH 29.3 pg (27.0-34.0) 09/28/23 05:45 MCHC 33.4 g/dL (33.0-35.0) 09/28/23 05:45 RDW 15.0 % (11.6-16.5) 09/28/23 05:45 Plt Count 248 X10^3/uL (150.0-450.0) 09/28/23 05:45 MPV 7.0 fL (7.4-11.0) L 09/28/23 05:45 Neut % (Auto) 70.2 % (42.0-75.0) 09/28/23 05:45 Lymph % (Auto) 15.6 % (21.0-51.0) L 09/28/23 05:45 [place] % (Auto) 13.4 % (0.0-13.0) H 09/28/23 05:45 Eos % (Auto) 0.4 % (0.9-2.9) L 09/28/23 05:45 Baso % (Auto) 0.4 % (0.2-1.0) 09/28/23 05:45 Neut # (Auto) 4.3 x10^3/uL (2.2-4.8) 09/28/23 05:45 Lymph # (Auto) 1.0 X10^3/uL (1.3-2.9) L 09/28/23 05:45 [place] # (Auto) 0.8 x10^3/uL (0.3-0.8) 09/28/23 05:45 Eos # (Auto) 0.0 x10^3/uL (0.0-0.2) 09/28/23 05:45 Baso # (Auto) 0.0 X10^3/uL (0.0-0.1) 09/28/23 05:45 Absolute Nucleated RBC 0.1 /100WBC 09/28/23 05:45 Sodium 142 mmol/L (136-145) 09/28/23 06:04 Corrected Sodium 143 mmol/L (136-145) 09/28/23 06:04 Potassium 3.7 mmol/L (3.5-5.1) 09/28/23 06:04 Chloride 104 mmol/L (98-107) 09/28/23 06:04 Carbon Dioxide 25.8 mmol/L (21-32) 09/28/23 06:04 BUN 32 mg/dL (7-18) H 09/28/23 06:04 Creatinine 2.27 mg/dL (0.55-1.02) H 09/28/23 06:04 Est GFR (MDRD) Af Amer 27 (>60) L 09/28/23 06:04 Est GFR (MDRD) Non-Af 22 (>60) L 09/28/23 06:04 Glucose 144 mg/dL (65-99) H 09/28/23 06:04 Lactic Acid 1.9 mmol/L (0.4-2.0) 09/27/23 13:05 Calcium 8.3 mg/dL (8.5-10.1) L 09/28/23 06:04 Corrected Calcium 9.1 mg/dL (8.5-10.1) 09/28/23 06:04 Total Bilirubin 0.50 mg/dL (0.2-1.0) 09/28/23 06:04 AST 14 Units/L (15-37) L 09/28/23 06:04 ALT 27 Units/L (12-78) 09/28/23 06:04 Alkaline Phosphatase 87 Units/L (46-116) 09/28/23 06:04 Total Protein 7.0 g/dL (6.4-8.2) 09/28/23 06:04 Albumin 3.0 g/dL (3.4-5.0) L 09/28/23 06:04 Globulin 4.0 g/dL (2.5-4.5) 09/28/23 06:04 Albumin/Globulin Ratio 0.8 Ratio (1.1-2.1) L 09/28/23 06:04 Lipase 16 Units/L (16-77) 09/27/23 13:05 Assessment and Plan 1: recurrent partial SBO .resolving slowly . to repeat KUB . 2: abdominal adhesions. same IVF for now .. to ambulate Problem Patient Problems: Patient Problems (Updated 09/27/23 @ 16:12 by Lio Hartman) Small bowel obstruction (Acute) K56.609
--- NOTE | 2023-09-28 09:56 | DR.H&P ---
H&P History & Physical for Day of: H&P Date: 09/28/23 Chief Complaint Chief Complaint: Abdominal pain Nausea and vomiting Allergies Allergies Allergy/AdvReac Type Severity Reaction Status Date / Time prednisone Allergy Intermediate HEADACHE Verified 09/09/19 20:38 History of Present Illness History of Present Illness: Patient is a 73-year-old female with a past medical history of anxiety, arthritis, COPD, depression, hypothyroidism, GERD, bowel resection, cholecystectomy, hysterectomy, joint replacement, and history of small bowel obstructions presenting with abdominal pain that started the night before. She also reports abdominal distention along with nausea and vomiting. She denies fevers, chills. She has had a recent admission for small bowel obstruction. Labs/imaging: WBC 10.2>6.2, hemoglobin 13.1, platelets 248, sodium 142, potassium 3.7, creatinine 1.28>2.27, glucose 144, lactic acid 1.9, CT of the abdomen pelvis was obtained that revealed: Status post partial small-bowel resection. Findings suggestive of a partial mid to distal small bowel o bstruction of uncertain etiology and with transmural thickening in several of the dilated small bowel loops which could indicate developing ischemia or associated enteritis. Ischemia is should be clinically excluded. Surgical evaluation is recommended. Patient is admitted for small bowel obstruction and acute renal failure. General surgery-Dr Whipple is consulted. Will keep patient n.p.o. at this time. Continue IV fluids but will change from D5 to normal saline at 100 mL/h. IV Protonix 40 mg twice daily, IV morphine as needed, IV Zofran as needed. Will obtain a KUB this morning. Follow-up general surgery recommendations. Patient is declining having an NG tube at this time. Will closely monitor and discussed with patient that if absolutely needed we will need to do an NG tube. Patient verbalized understanding. Otherwise continue with current treatment plan. Continue closely monitor and follow-up labs/imaging. Past Medical History Past Medical History: Anxiety, Arthritis, COPD, Depression, GERD and Hypothyroidism Additional Medical History: Frequent Constipation, Small Bowel Obstruction Past Surgical History Surgical History: Bowel Resection, Hysterectomy and Joint Replacement Additional Surgical History: Hernia Repair, Back Surgery, Bladder Tack Family History Family Medical History: Sudden Cardiac Social History Does patient currently use any type of tobacco product: No Have you used tobacco products in the last 12 months: No Type of Tobacco Use: None Does any household member use tobacco: No Alcohol Use: None Drug Use: None Medications Home Medications: Home Medications Medication Instructions Recorded Confirmed Type albuterol sulfate 90 mcg/actuation 1 puff inhalation PRN PRN 03/28/19 09/27/23 History aerosol inhaler Shortness Of Breath fluticasone fur. 100 mcg-umeclid 1 inh inhalation DAILY 09/09/19 09/27/23 History 62.5 mcg-vilant 25 mcg inhalat.powder (Trelegy Ellipta) diclofenac sodium 50 mg 50 mg PO BID 07/19/23 09/27/23 History tablet,delayed release Labs 09/28/23 05:45 09/28/23 06:04 Labs: Laboratory WBC 6.2 X10^3/uL (3.6-10.0) 09/28/23 05:45 RBC 4.48 X10^6/uL (3.5-5.4) 09/28/23 05:45 Hgb 13.1 g/dL (12.0-16.0) 09/28/23 05:45 Hct 39.2 % (36.0-47.0) 09/28/23 05:45 MCV 87.6 fL (80.0-100.0) 09/28/23 05:45 MCH 29.3 pg (27.0-34.0) 09/28/23 05:45 MCHC 33.4 g/dL (33.0-35.0) 09/28/23 05:45 RDW 15.0 % (11.6-16.5) 09/28/23 05:45 Plt Count 248 X10^3/uL (150.0-450.0) 09/28/23 05:45 MPV 7.0 fL (7.4-11.0) L 09/28/23 05:45 Neut % (Auto) 70.2 % (42.0-75.0) 09/28/23 05:45 Lymph % (Auto) 15.6 % (21.0-51.0) L 09/28/23 05:45 [place] % (Auto) 13.4 % (0.0-13.0) H 09/28/23 05:45 Eos % (Auto) 0.4 % (0.9-2.9) L 09/28/23 05:45 Baso % (Auto) 0.4 % (0.2-1.0) 09/28/23 05:45 Neut # (Auto) 4.3 x10^3/uL (2.2-4.8) 09/28/23 05:45 Lymph # (Auto) 1.0 X10^3/uL (1.3-2.9) L 09/28/23 05:45 [place] # (Auto) 0.8 x10^3/uL (0.3-0.8) 09/28/23 05:45 Eos # (Auto) 0.0 x10^3/uL (0.0-0.2) 09/28/23 05:45 Baso # (Auto) 0.0 X10^3/uL (0.0-0.1) 09/28/23 05:45 Absolute Nucleated RBC 0.1 /100WBC 09/28/23 05:45 Sodium 142 mmol/L (136-145) 09/28/23 06:04 Corrected Sodium 143 mmol/L (136-145) 09/28/23 06:04 Potassium 3.7 mmol/L (3.5-5.1) 09/28/23 06:04 Chloride 104 mmol/L (98-107) 09/28/23 06:04 Carbon Dioxide 25.8 mmol/L (21-32) 09/28/23 06:04 BUN 32 mg/dL (7-18) H 09/28/23 06:04 Creatinine 2.27 mg/dL (0.55-1.02) H 09/28/23 06:04 Est GFR (MDRD) Af Amer 27 (>60) L 09/28/23 06:04 Est GFR (MDRD) Non-Af 22 (>60) L 09/28/23 06:04 Glucose 144 mg/dL (65-99) H 09/28/23 06:04 Lactic Acid 1.9 mmol/L (0.4-2.0) 09/27/23 13:05 Calcium 8.3 mg/dL (8.5-10.1) L 09/28/23 06:04 Corrected Calcium 9.1 mg/dL (8.5-10.1) 09/28/23 06:04 Total Bilirubin 0.50 mg/dL (0.2-1.0) 09/28/23 06:04 AST 14 Units/L (15-37) L 09/28/23 06:04 ALT 27 Units/L (12-78) 09/28/23 06:04 Alkaline Phosphatase 87 Units/L (46-116) 09/28/23 06:04 Total Protein 7.0 g/dL (6.4-8.2) 09/28/23 06:04 Albumin 3.0 g/dL (3.4-5.0) L 09/28/23 06:04 Globulin 4.0 g/dL (2.5-4.5) 09/28/23 06:04 Albumin/Globulin Ratio 0.8 Ratio (1.1-2.1) L 09/28/23 06:04 Lipase 16 Units/L (16-77) 09/27/23 13:05 Review of Systems Constitutional: No Symptoms Reported Eyes: No Symptoms Reported ENT: No Symptoms Reported Respiratory: No Symptoms Reported Cardiovascular: No Symptoms Reported Gastrointestinal: Nausea, Vomiting and Abdominal Pain Genitourinary: No Symptoms Reported Musculoskeletal: No Symptoms Reported Skin: No Symptoms Reported Neurological: No Symptoms Reported Physical Exam Vital Signs: Vital Signs Temperature 98.3 F Temperature 98.2 F Pulse Rate [Brachial] 79 Pulse Rate [Brachial] 72 Pulse Rate 82 Respiratory Rate 18 Respiratory Rate 20 Blood Pressure [Left Arm] 103/54 Blood Pressure [Left Arm] 98/49 O2 Sat by Pulse Oximetry 96 O2 Sat by Pulse Oximetry 95 O2 Sat by Pulse Oximetry 95 Oriented: Normal Eyes: Normal Ear: Normal Nose: Normal Throat: Normal Respiratory: Clear Throughout Cardiovascular: Normal : Normal Auscultation: Bowel Sounds: Normal Palpation: Normal Tenderness: Diffuse and Mild Skin: Normal Musculoskeletal: Normal Psychiatric: Normal Mood Description: Calm and Appropriate Affect: Normal Speech Pattern: Clear and Appropriate Assessment/Plan (1) Small bowel obstruction: Status: Acute Plan: Keep n.p.o., continue IV fluids, general surgery consulted and is following. (2) Acute renal failure: Status: Acute Plan: Continue IV fluids and monitor renal function. Review H&P Reviewed: Yes Patient was examined?: Yes
[2023-09-28 12:35] LABS: BILIRUBIN,URINE 2+ (NEGATIVE); BLOOD/HEMOGLOBIN,URINE NEGATIVE (NEGATIVE); GLUCOSE, URINE NEGATIVE (NEGATIVE); KETONES,URINE NEGATIVE (NEGATIVE); LEUKOCYTE ESTERASE ,URINE 1+ (NEGATIVE); NITRITES,URINE NEGATIVE (NEGATIVE); PROTEIN,URINE 2+ (NEGATIVE); UROBILINOGEN,URINE NORMAL (NORMAL)
[2023-09-28 12:49] LABS: APPEARANCE,URINE HAZY (CLEAR); BACTERIA,URINE 1+ /HPF (NEGATIVE); COLOR,URINE AMBER (YELLOW); RBC,URINE NONE SEEN /HPF (0-3); SQUAMOUS EPITHELIAL CELL,UR MANY /HPF (NEGATIVE)
[2023-09-28 12:50] LABS: CALCIUM OXALATE CRYSTALS,UR RARE /HPF (NEGATIVE); RENAL EPITHELIAL CELLS,URINE RARE /HPF (NEGATIVE)
--- NOTE | 2023-09-28 14:18 | RAD ---
EXAM:KUB x-ray 1HISTORY:ABD PAIN; HX-COPD SX- BOWEL RESECTION, HYSTERECTOMY, ORTHO -COMPARISON:CT 09/27/2023FINDINGS:Prior lumbar spine fusion. There is increased small bowel air. Small-bowel loops are dilated up to 3.9 cm. Small-bowel obstruction is likely. Small and large bowel air is diminished since prior CT.IMPRESSION:Persistent small bowel dilation with air is concerning for small bowel obstruction.THIS IS AN ELECTRONICALLY VERIFIED FINAL REPORT09/28/2023 2:15 PM - Electronically signed by Oumar Cramer MD
[2023-09-28] MEDS ORDERED: RESTORIL CAP 15 MG PO PRN (19:22)
[2023-09-28] MEDS: RESTORIL CAP 15 MG PO PRN (20:19)
[2023-09-29] MEDS: MORPHINE SULFATE INJ 2 MG INJ IVP PRN (01:41)
[2023-09-29 05:13] LABS: BASOPHILS % (AUTO) 0.4 % (0.2-1.0); EOSINOPHILS # (AUTO) 0.1 x10^3/uL (0.0-0.2); EOSINOPHILS % (AUTO) 0.9 % (0.9-2.9); HEMOGLOBIN 11.9 g/dL (12.0-16.0); LYMPHOCYTES # (AUTO) 1.2 X10^3/uL (1.3-2.9); LYMPHOCYTES % (AUTO) 17.8 % (21.0-51.0); MEAN CORPUSCULAR HEMOGLOBIN 28.9 pg (27.0-34.0); MEAN CORPUSCULAR HGB CONC 33.1 g/dL (33.0-35.0); MEAN CORPUSCULAR VOLUME 87.4 fL (80.0-100.0); MEAN PLATELET VOLUME 7.4 fL (7.4-11.0); MONOCYTES # (AUTO) 0.9 x10^3/uL (0.3-0.8); MONOCYTES % (AUTO) 13.6 % (0.0-13.0); NEUTROPHILS # (AUTO) 4.5 x10^3/uL (2.2-4.8); NEUTROPHILS % (AUTO) 67.3 % (42.0-75.0); PLATELET COUNT 225 X10^3/uL (150.0-450.0); RED BLOOD COUNT 4.12 X10^6/uL (3.5-5.4); RED CELL DISTRIBUTION WIDTH 14.8 % (11.6-16.5); WHITE BLOOD COUNT 6.7 X10^3/uL (3.6-10.0)
[2023-09-29 05:29] LABS: ALANINE AMINOTRANSFERASE 19 Units/L (12-78); ALBUMIN 2.6 g/dL (3.4-5.0); ALKALINE PHOSPHATASE 77 Units/L (46-116); ASPARTATE AMINO TRANSFERASE 12 Units/L (15-37); BLOOD UREA NITROGEN 28 mg/dL (7-18); CALCIUM 8.2 mg/dL (8.5-10.1); CARBON DIOXIDE 24.3 mmol/L (21-32); CHLORIDE 107 mmol/L (98-107); COR CA(FOR HYPOALB) 9.3 mg/dL (8.5-10.1); CREATININE 0.91 mg/dL (0.55-1.02); GLUCOSE 79 mg/dL (65-99); MAGNESIUM 1.5 mg/dL (2.0-2.9); POTASSIUM 3.8 mmol/L (3.5-5.1); SODIUM 140 mmol/L (136-145); TOTAL PROTEIN 6.2 g/dL (6.4-8.2); eGFR NON BLACK RACES > 60 (>60)
--- NOTE | 2023-09-29 05:55 | RAD ---
PROCEDURE: Abdomen 1 View. HISTORY: Small bowel obstruction. TECHNIQUE: AP supine view of the abdomen. COMPARISON: 09/28/2023. TECHNICAL QUALITY: Satisfactory. FINDINGS: Continued dilated bowel loops throughout the abdomen and pelvis similar to previous CT and abdomen fi lm could be related to ileus or partial obstruction. IMPRESSION: Unchanged dilated bowel loops. THIS IS AN ELECTRONICALLY VERIFIED FINAL REPORT 09/29/2023 5:51 AM - Electronically signed by Basim Aguirre MD
[2023-09-29] MEDS ORDERED: CONSULT PHARMACY - POTASSIUM & MAGNESIUM XX SCH ×2 (06:00→11:00)
[2023-09-29] MEDS: MAGNESIUM SULFATE 1 GRAM/100 mL PREMIX 1 G/100 ML BAG IV SCH (08:38)
[2023-09-29] MEDS ORDERED: K-RIDER 10 MEQ/100 ML WATER 10 MEQ/100 ML BAG IV SCH (10:00)
[2023-09-29] MEDS: MICRO K EXTEN CAP 10 MEQ PO SCH (10:15)
--- NOTE | 2023-09-29 10:31 | PCM.PROG ---
Progress Note Progress Note for Day of Date of Exam: 09/29/23 Subjective Subjective: Patient seen at bedside, no acute events overnight. She is feeling better, abdominal pain has subsided. Denies N/V/D. She had a BM yesterday, normal, no blood. She is admitted for SBO. Repeat KUB this morning shows partial obstruction vs ileus. Labs/imaging reviewed -Hgb 11.9 K:3.8 Ma.5 Plan: follow surgery recommendations. Continue NPO and IV hydration. Replace electrolytes as needed. Continue pain control prn. Continue anti-emetics prn. Monitor AM labs/imaging. Encouraged ambulation. Past Medical Family Social History Past Med/Fam/Surg Hx: No changes since H&P Allergies: Allergies prednisone Allergy (Intermediate, Verified 09/09/19 20:38) HEADACHE pt states she is able to take predisone if absolutely needed but causes headaches. Vital Signs and I&O's Vital Signs: Vital Signs Temperature 98 F Temperature 98.4 F Pulse Rate [Brachial] 83 Pulse Rate [Brachial] 81 Pulse Rate 82 Respiratory Rate 18 Respiratory Rate 20 Blood Pressure [Left Arm] 133/61 Blood Pressure [Left Arm] 111/61 O2 Sat by Pulse Oximetry 97 O2 Sat by Pulse Oximetry 96 O2 Sat by Pulse Oximetry 96 Intake and Output: Intake & Output 09/26/23 09/27/23 09/28/23 09/29/23 23:59 23:59 23:59 23:59 Intake Total 267 / 267 1996 609 / 609 Output Total 450 / 450 Balance 267 / 267 1547 / 1547 609 / 609 Physical Exam Oriented: Normal Eyes: Normal Ear: Normal Nose: Normal Throat: Normal Respiratory: Normal Cardiovascular: Normal Auscultation: Bowel Sounds: Decreased Palpation: Normal Tenderness: Diffuse and Mild Skin: Normal Musculoskeletal: Normal Psychiatric: Normal Mood Description: Calm and Appropriate Affect: Normal Speech Pattern: Clear and Appropriate Laboratory and Diagnostics 09/29/23 04:48 09/29/23 04:48 Labs: Laboratory WBC 6.7 X10^3/uL (3.6-10.0) 09/29/23 04:48 RBC 4.12 X10^6/uL (3.5-5.4) 09/29/23 04:48 Hgb 11.9 g/dL (12.0-16.0) L 09/29/23 04:48 Hct 36.0 % (36.0-47.0) 09/29/23 04:48 MCV 87.4 fL (80.0-100.0) 09/29/23 04:48 MCH 28.9 pg (27.0-34.0) 09/29/23 04:48 MCHC 33.1 g/dL (33.0-35.0) 09/29/23 04:48 RDW 14.8 % (11.6-16.5) 09/29/23 04:48 Plt Count 225 X10^3/uL (150.0-450.0) 09/29/23 04:48 MPV 7.4 fL (7.4-11.0) 09/29/23 04:48 Neut % (Auto) 67.3 % (42.0-75.0) 09/29/23 04:48 Lymph % (Auto) 17.8 % (21.0-51.0) L 09/29/23 04:48 [place] % (Auto) 13.6 % (0.0-13.0) H 09/29/23 04:48 Eos % (Auto) 0.9 % (0.9-2.9) 09/29/23 04:48 Baso % (Auto) 0.4 % (0.2-1.0) 09/29/23 04:48 Neut # (Auto) 4.5 x10^3/uL (2.2-4.8) 09/29/23 04:48 Lymph # (Auto) 1.2 X10^3/uL (1.3-2.9) L 09/29/23 04:48 [place] # (Auto) 0.9 x10^3/uL (0.3-0.8) H 09/29/23 04:48 Eos # (Auto) 0.1 x10^3/uL (0.0-0.2) 09/29/23 04:48 Baso # (Auto) 0.0 X10^3/uL (0.0-0.1) 09/29/23 04:48 Absolute Nucleated RBC 0.0 /100WBC 09/29/23 04:48 Sodium 140 mmol/L (136-145) 09/29/23 04:48 Corrected Sodium TNP 09/29/23 04:48 Potassium 3.8 mmol/L (3.5-5.1) 09/29/23 04:48 Chloride 107 mmol/L (98-107) 09/29/23 04:48 Carbon Dioxide 24.3 mmol/L (21-32) 09/29/23 04:48 BUN 28 mg/dL (7-18) H 09/29/23 04:48 Creatinine 0.91 mg/dL (0.55-1.02) 09/29/23 04:48 Est GFR (MDRD) Af Amer > 60 (>60) 09/29/23 04:48 Est GFR (MDRD) Non-Af > 60 (>60) 09/29/23 04:48 Glucose 79 mg/dL (65-99) 09/29/23 04:48 Lactic Acid 1.9 mmol/L (0.4-2.0) 09/27/23 13:05 Calcium 8.2 mg/dL (8.5-10.1) L 09/29/23 04:48 Corrected Calcium 9.3 mg/dL (8.5-10.1) 09/29/23 04:48 Magnesium 1.5 mg/dL (2.0-2.9) L 09/29/23 04:48 Total Bilirubin 0.40 mg/dL (0.2-1.0) 09/29/23 04:48 AST 12 Units/L (15-37) L 09/29/23 04:48 ALT 19 Units/L (12-78) 09/29/23 04:48 Alkaline Phosphatase 77 Units/L (46-116) 09/29/23 04:48 Total Protein 6.2 g/dL (6.4-8.2) L 09/29/23 04:48 Albumin 2.6 g/dL (3.4-5.0) L 09/29/23 04:48 Globulin 3.6 g/dL (2.5-4.5) 09/29/23 04:48 Albumin/Globulin Ratio 0.7 Ratio (1.1-2.1) L 09/29/23 04:48 Lipase 16 Units/L (16-77) 09/27/23 13:05 Specimen Type Clean catch urine 09/28/23 12:15 Urine Color [place] (YELLOW) 09/28/23 12:15 Urine Appearance Hazy (CLEAR) 09/28/23 12:15 Urine pH 5.0 (5.0 - 8.0) 09/28/23 12:15 Ur Specific [place] 1.025 (1.000-1.030) 09/28/23 12:15 Urine Protein 2+ (NEGATIVE) 09/28/23 12:15 Urine Glucose (UA) Negative (NEGATIVE) 09/28/23 12:15 Urine Ketones Negative (NEGATIVE) 09/28/23 12:15 Urine Blood Negative (NEGATIVE) 09/28/23 12:15 Urine Nitrite Negative (NEGATIVE) 09/28/23 12:15 Urine Bilirubin 2+ (NEGATIVE) 09/28/23 12:15 Urine Urobilinogen Normal (NORMAL) 09/28/23 12:15 Ur Leukocyte Esterase 1+ (NEGATIVE) 09/28/23 12:15 Urine RBC None seen /HPF (0-3) 09/28/23 12:15 Urine WBC 3-5 /HPF (0-5) 09/28/23 12:15 Ur Squamous Epith Cells Many /HPF (NEGATIVE) 09/28/23 12:15 Ur Renal Epithelial Cell Rare /HPF (NEGATIVE) 09/28/23 12:15 Calcium Oxalate Crystal Rare /HPF (NEGATIVE) 09/28/23 12:15 Amorphous Sediment 2+ /HPF (NEGATIVE) 09/28/23 12:15 Urine Bacteria 1+ /HPF (NEGATIVE) 09/28/23 12:15 Urine Mucus Rare /HPF (NEGATIVE) 09/28/23 12:15 Ur Culture Indicated? No/not indicated 09/28/23 12:15 Plan (1) Small bowel obstruction: Status: Acute (2) Acute renal failure: Status: Acute Qualifiers: Acute renal failure type: unspecified Qualified Code(s): N17.9 - Acute kidney failure, unspecified (3) Hypomagnesemia: Status: Acute (4) Anemia: Status: Acute Qualifiers: Anemia type: unspecified type Qualified Code(s): D64.9 - Anemia, unspecified (5) History of bowel resection: Status: Chronic (6) Arthritis: Status: Chronic
[2023-09-30 05:41] VITALS: RESP 20
[2023-09-30 06:16] LABS: ALANINE AMINOTRANSFERASE 15 Units/L (12-78); ALBUMIN 2.6 g/dL (3.4-5.0); ALKALINE PHOSPHATASE 79 Units/L (46-116); ASPARTATE AMINO TRANSFERASE 15 Units/L (15-37); BLOOD UREA NITROGEN 12 mg/dL (7-18); CALCIUM 8.4 mg/dL (8.5-10.1); CARBON DIOXIDE 22.6 mmol/L (21-32); CHLORIDE 109 mmol/L (98-107); COR CA(FOR HYPOALB) 9.5 mg/dL (8.5-10.1); CREATININE 0.59 mg/dL (0.55-1.02); GLUCOSE 64 mg/dL (65-99); MAGNESIUM 1.8 mg/dL (2.0-2.9); POTASSIUM 3.7 mmol/L (3.5-5.1); SODIUM 143 mmol/L (136-145); TOTAL PROTEIN 6.2 g/dL (6.4-8.2); eGFR NON BLACK RACES > 60 (>60)
[2023-09-30 06:39] LABS: EOSINOPHILS # (AUTO) 0.1 x10^3/uL (0.0-0.2); MONOCYTES # (AUTO) 0.6 x10^3/uL (0.3-0.8); NEUTROPHILS # (AUTO) 3.9 x10^3/uL (2.2-4.8); RED BLOOD COUNT 3.83 X10^6/uL (3.5-5.4); WHITE BLOOD COUNT 5.8 X10^3/uL (3.6-10.0)
[2023-09-30 06:42] LABS: BASOPHILS % (AUTO) 0.4 % (0.2-1.0); EOSINOPHILS % (AUTO) 1.1 % (0.9-2.9); HEMATOCRIT 33.3 % (36.0-47.0); HEMOGLOBIN 11.2 g/dL (12.0-16.0); LYMPHOCYTES # (AUTO) 1.2 X10^3/uL (1.3-2.9); MEAN CORPUSCULAR HEMOGLOBIN 29.2 pg (27.0-34.0); MEAN CORPUSCULAR HGB CONC 33.6 g/dL (33.0-35.0); NEUTROPHILS % (AUTO) 67.5 % (42.0-75.0); PLATELET COUNT 224 X10^3/uL (150.0-450.0); RED CELL DISTRIBUTION WIDTH 14.3 % (11.6-16.5)
[2023-09-30] MEDS ORDERED: CONSULT PHARMACY - POTASSIUM & MAGNESIUM XX SCH (07:00)
--- NOTE | 2023-09-30 07:23 | RAD ---
EXAM: KUB HISTORY: SBO COMPARISON: 09/29/2023 FINDINGS: A normal amount of colon gas is now present with little or no significant small bowel dilatation erica ntified. Detail is significantly limited on these images. There is no evidence for developing mass or ascites. IMPRESSION: Unremarkable intestinal gas pattern without evidence for significant SBO. THIS IS AN ELECTRONICALLY VERIFIED FINAL REPORT 09/30/2023 7:20 AM - Electronically signed by Mono Jackson MD
[2023-09-30] MEDS: K-DUR TAB 20 MEQ PO SCH (08:11)
[2023-09-30] MEDS: MAGNESIUM SULFATE 1 GRAM/100 mL PREMIX 1 G/100 ML BAG IV SCH (08:15)
[2023-09-30 08:19] VITALS: BP 144/70; TEMP 98.2
[2023-09-30 08:23] VITALS: PULSE 88; O2SAT 94
[2023-09-30] MEDS ORDERED: K-RIDER 10 MEQ/100 ML WATER 10 MEQ/100 ML BAG IV SCH (09:00)
--- NOTE | 2023-10-01 08:49 | W.DIS.FURT ---
Summary of Discharge Discharge Summary of Date Date of Exam: 09/30/23 Admission Date Date of Admission: 09/27/23 Admission Diagnosis Patient Problems (Updated 09/29/23 @ 10:30 by Nicky Morales) Small bowel obstruction (Acute) K56.609 Hospital Course: Ms. Santoro 73-year-old female with a past medical history of anxiety, arthritis, COPD, GERD, bowel resection, cholecystectomy and recurrent small bow el obstructions presented with abdominal pain. She was also having nausea and vomiting. She was recently admitted for small bowel obstruction. In the ER CT showed partial small bowel obstruction with transmural thickening of several of the dilated small bowel loops which could indicate developing ischemia or associated enteritis. Patient was started on pain control, hydration and n.p.o. status. General surgery Dr. Burrows was consulted. He advised no surgical intervention at this time. Patient declined NG tube placement. Her labs were monitored daily and serial KUBs were done. Patient was kept n.p.o. with D5 fluids. Her electrolytes were replaced as needed. Her KUB showed no obstruction on 09/30/2023. She was tolerating oral intake. She did not have any nausea, vomiting or diarrhea. She was having normal bowel movements. Patient was stable for discharge and will follow-up with PCP as scheduled. Vital Signs: Vital Signs (72 hours) 09/27/23 16:00 09/27/23 16:15 09/27/23 16:30 Temperature Pulse Rate 85 86 89 Pulse Rate [Brachial] Respiratory Rate 22 25 H 24 Blood Pressure Blood Pressure [Left Arm] O2 Sat by Pulse Oximetry 93 L 88 L Oxygen Delivery Method Oxygen Flow Rate FIO2% 09/27/23 16:45 09/27/23 17:00 09/27/23 17:54 Temperature Pulse Rate 87 89 79 Pulse Rate [Brachial] Respiratory Rate 25 H 25 H 22 Blood Pressure 99/45 Blood Pressure [Left Arm] O2 Sat by Pulse Oximetry 93 L 95 98 Oxygen Delivery Method Room Air Oxygen Flow Rate FIO2% 09/27/23 18:00 09/27/23 18:20 09/27/23 18:20 Temperature 98.0 F Pulse Rate 80 80 Pulse Rate [Brachial] Respiratory Rate 22 Blood Pressure 94/46 94/46 Blood Pressure [Left Arm] O2 Sat by Pulse Oximetry 80 L Oxygen Delivery Method Room Air Room Air Oxygen Flow Rate FIO2% 09/27/23 20:00 09/27/23 19:00 09/28/23 00:00 Temperature 98.1 F 98.6 F Pulse Rate Pulse Rate [Brachial] 84 73 Respiratory Rate 20 20 Blood Pressure Blood Pressure [Left Arm] 106/57 105/52 O2 Sat by Pulse Oximetry 94 L 96 Oxygen Delivery Method Room Air Oxygen Flow Rate FIO2% 09/27/23 21:39 09/27/23 21:39 09/28/23 04:00 Temperature 98.2 F Pulse Rate 78 Pulse Rate [Brachial] 72 Respiratory Rate 20 Blood Pressure Blood Pressure [Left Arm] 98/49 O2 Sat by Pulse Oximetry 95 95 Oxygen Delivery Method Nasal Cannula Oxygen Flow Rate 2 FIO2% 28 09/28/23 08:00 09/28/23 07:00 09/28/23 08:52 Temperature 98.3 F Pulse Rate Pulse Rate [Brachial] 79 Respiratory Rate 18 Blood Pressure Blood Pressure [Left Arm] 103/54 O2 Sat by Pulse Oximetry 95 Oxygen Delivery Method Room Air Room Air Oxygen Flow Rate FIO2% 21 09/28/23 08:52 09/28/23 12:00 09/28/23 16:00 Temperature 97.6 F 97.7 F Pulse Rate 82 Pulse Rate [Brachial] 79 76 Respiratory Rate 18 18 Blood Pressure Blood Pressure [Left Arm] 110/52 111/56 O2 Sat by Pulse Oximetry 96 99 95 Oxygen Delivery Method Oxygen Flow Rate FIO2% 09/28/23 19:00 09/28/23 20:00 09/28/23 23:59 Temperature 98.4 F 98.1 F Pulse Rate Pulse Rate [Brachial] 78 74 Respiratory Rate 20 18 Blood Pressure Blood Pressure [Left Arm] 112/58 136/72 O2 Sat by Pulse Oximetry 99 96 Oxygen Delivery Method Nasal Cannula Oxygen Flow Rate 2 FIO2% 09/29/23 01:41 09/29/23 02:11 09/29/23 04:00 Temperature 98.4 F Pulse Rate Pulse Rate [Brachial] 81 Respiratory Rate 20 20 20 Blood Pressure Blood Pressure [Left Arm] 111/61 O2 Sat by Pulse Oximetry 96 Oxygen Delivery Method Oxygen Flow Rate FIO2% 09/28/23 20:35 09/28/23 20:20 09/29/23 08:44 Temperature Pulse Rate 73 Pulse Rate [Brachial] Respiratory Rate Blood Pressure Blood Pressure [Left Arm] O2 Sat by Pulse Oximetry 97 Oxygen Delivery Method Nasal Cannula Nasal Cannula Oxygen Flow Rate 2 2 FIO2% 28 09/29/23 08:00 09/29/23 09:00 09/29/23 09:01 Temperature 98 F Pulse Rate 82 Pulse Rate [Brachial] 83 Respiratory Rate 18 Blood Pressure Blood Pressure [Left Arm] 133/61 O2 Sat by Pulse Oximetry 96 97 Oxygen Delivery Method Nasal Cannula Oxygen Flow Rate 2 FIO2% 28 09/29/23 12:00 09/29/23 14:06 09/29/23 14:36 Temperature 98.6 F Pulse Rate Pulse Rate [Brachial] 84 Respiratory Rate 18 20 20 Blood Pressure Blood Pressure [Left Arm] 119/60 O2 Sat by Pulse Oximetry 94 L Oxygen Delivery Method Oxygen Flow Rate FIO2% 09/29/23 16:00 09/29/23 19:00 09/29/23 20:00 Temperature 97.9 F 98.6 F Pulse Rate Pulse Rate [Brachial] 76 91 H Respiratory Rate 18 19 Blood Pressure Blood Pressure [Left Arm] 126/61 156/66 O2 Sat by Pulse Oximetry 98 96 Oxygen Delivery Method Nasal Cannula Nasal Cannula Oxygen Flow Rate 2 FIO2% 09/29/23 20:15 09/29/23 20:15 09/29/23 20:48 Temperature Pulse Rate 97 H Pulse Rate [Brachial] Respiratory Rate 18 Blood Pressure Blood Pressure [Left Arm] O2 Sat by Pulse Oximetry 98 Oxygen Delivery Method Nasal Cannula Oxygen Flow Rate 2 FIO2% 28 09/29/23 21:18 09/30/23 00:00 09/30/23 00:03 Temperature 98.1 F Pulse Rate Pulse Rate [Brachial] 87 Respiratory Rate 18 20 Blood Pressure Blood Pressure [Left Arm] 159/74 O2 Sat by Pulse Oximetry 95 Oxygen Delivery Method Nasal Cannula Nasal Cannula Oxygen Flow Rate 2 FIO2% 28 09/30/23 04:00 09/30/23 05:41 09/30/23 06:11 Temperature 98.0 F Pulse Rate Pulse Rate [Brachial] 93 H Respiratory Rate 18 20 20 Blood Pressure Blood Pressure [Left Arm] 135/60 O2 Sat by Pulse Oximetry 95 Oxygen Delivery Method Room Air Oxygen Flow Rate FIO2% 09/30/23 08:17 09/30/23 08:00 09/30/23 08:21 Temperature 98.2 F Pulse Rate Pulse Rate [Brachial] 81 Respiratory Rate 20 Blood Pressure Blood Pressure [Left Arm] 144/70 O2 Sat by Pulse Oximetry 95 Oxygen Delivery Method Nasal Cannula Room Air Nasal Cannula Oxygen Flow Rate 2 2 FIO2% 28 09/30/23 08:22 Temperature Pulse Rate 88 Pulse Rate [Brachial] Respiratory Rate Blood Pressure Blood Pressure [Left Arm] O2 Sat by Pulse Oximetry 94 L Oxygen Delivery Method Oxygen Flow Rate FIO2% Labs: Laboratory Last Values WBC 5.8 X10^3/uL (3.6-10.0) 09/30/23 06:30 RBC 3.83 X10^6/uL (3.5-5.4) 09/30/23 06:30 Hgb 11.2 g/dL (12.0-16.0) L 09/30/23 06:30 Hct 33.3 % (36.0-47.0) L 09/30/23 06:30 MCV 87.0 fL (80.0-100.0) 09/30/23 06:30 MCH 29.2 pg (27.0-34.0) 09/30/23 06:30 MCHC 33.6 g/dL (33.0-35.0) 09/30/23 06:30 RDW 14.3 % (11.6-16.5) 09/30/23 06:30 Plt Count 224 X10^3/uL (150.0-450.0) 09/30/23 06:30 MPV 7.0 fL (7.4-11.0) L 09/30/23 06:30 Neut % (Auto) 67.5 % (42.0-75.0) 09/30/23 06:30 Lymph % (Auto) 21.0 % (21.0-51.0) 09/30/23 06:30 [place] % (Auto) 10.0 % (0.0-13.0) 09/30/23 06:30 Eos % (Auto) 1.1 % (0.9-2.9) 09/30/23 06:30 Baso % (Auto) 0.4 % (0.2-1.0) 09/30/23 06:30 Neut # (Auto) 3.9 x10^3/uL (2.2-4.8) 09/30/23 06:30 Lymph # (Auto) 1.2 X10^3/uL (1.3-2.9) L 09/30/23 06:30 [place] # (Auto) 0.6 x10^3/uL (0.3-0.8) 09/30/23 06:30 Eos # (Auto) 0.1 x10^3/uL (0.0-0.2) 09/30/23 06:30 Baso # (Auto) 0.0 X10^3/uL (0.0-0.1) 09/30/23 06:30 Absolute Nucleated RBC 0.1 /100WBC 09/30/23 06:30 Sodium 143 mmol/L (136-145) 09/30/23 06:30 Corrected Sodium TNP 09/30/23 06:30 Potassium 3.7 mmol/L (3.5-5.1) 09/30/23 06:30 Chloride 109 mmol/L (98-107) H 09/30/23 06:30 Carbon Dioxide 22.6 mmol/L (21-32) 09/30/23 06:30 BUN 12 mg/dL (7-18) 09/30/23 06:30 Creatinine 0.59 mg/dL (0.55-1.02) 09/30/23 06:30 Est GFR (MDRD) Af Amer > 60 (>60) 09/30/23 06:30 Est GFR (MDRD) Non-Af > 60 (>60) 09/30/23 06:30 Glucose 64 mg/dL (65-99) L 09/30/23 06:30 POC Glucose (mg/dL) 80 mg/dL (65-99) 09/29/23 20:29 Lactic Acid 1.9 mmol/L (0.4-2.0) 09/27/23 13:05 Calcium 8.4 mg/dL (8.5-10.1) L 09/30/23 06:30 Corrected Calcium 9.5 mg/dL (8.5-10.1) 09/30/23 06:30 Magnesium 1.8 mg/dL (2.0-2.9) L 09/30/23 06:30 Total Bilirubin 0.40 mg/dL (0.2-1.0) 09/30/23 06:30 AST 15 Units/L (15-37) 09/30/23 06:30 ALT 15 Units/L (12-78) 09/30/23 06:30 Alkaline Phosphatase 79 Units/L (46-116) 09/30/23 06:30 Total Protein 6.2 g/dL (6.4-8.2) L 09/30/23 06:30 Albumin 2.6 g/dL (3.4-5.0) L 09/30/23 06:30 Globulin 3.6 g/dL (2.5-4.5) 09/30/23 06:30 Albumin/Globulin Ratio 0.7 Ratio (1.1-2.1) L 09/30/23 06:30 Lipase 16 Units/L (16-77) 09/27/23 13:05 Specimen Type Clean catch urine 09/28/23 12:15 Urine Color [place] (YELLOW) 09/28/23 12:15 Urine Appearance Hazy (CLEAR) 09/28/23 12:15 Urine pH 5.0 (5.0 - 8.0) 09/28/23 12:15 Ur Specific [place] 1.025 (1.000-1.030) 09/28/23 12:15 Urine Protein 2+ (NEGATIVE) 09/28/23 12:15 Urine Glucose (UA) Negative (NEGATIVE) 09/28/23 12:15 Urine Ketones Negative (NEGATIVE) 09/28/23 12:15 Urine Blood Negative (NEGATIVE) 09/28/23 12:15 Urine Nitrite Negative (NEGATIVE) 09/28/23 12:15 Urine Bilirubin 2+ (NEGATIVE) 09/28/23 12:15 Urine Urobilinogen Normal (NORMAL) 09/28/23 12:15 Ur Leukocyte Esterase 1+ (NEGATIVE) 09/28/23 12:15 Urine RBC None seen /HPF (0-3) 09/28/23 12:15 Urine WBC 3-5 /HPF (0-5) 09/28/23 12:15 Ur Squamous Epith Cells Many /HPF (NEGATIVE) 09/28/23 12:15 Ur Renal Epithelial Cell Rare /HPF (NEGATIVE) 09/28/23 12:15 Calcium Oxalate Crystal Rare /HPF (NEGATIVE) 09/28/23 12:15 Amorphous Sediment 2+ /HPF (NEGATIVE) 09/28/23 12:15 Urine Bacteria 1+ /HPF (NEGATIVE) 09/28/23 12:15 Urine Mucus Rare /HPF (NEGATIVE) 09/28/23 12:15 Ur Culture Indicated? No/not indicated 09/28/23 12:15 Reason For Visit: SMALL BOWEL OBSTRUCTION Discharge Diagnosis All Active Problems (Updated 09/29/23 @ 10:30 by Nicky Morales) Anemia (Acute) Hypomagnesemia (Acute) Acute renal failure (Acute) Pneumonia (Acute) COPD exacerbation (Acute) Small bowel obstruction, partial (Acute) Small bowel obstruction (Acute) Constipation (Acute) COPD (chronic obstructive pulmonary disease) (Chronic) Hypothyroidism (Chronic) Anxiety (Chronic) Polyneuropathy (Chronic) History of pernicious anemia (Chronic) UTI (urinary tract infection) (Acute) Ileus, unspecified (Acute) History of bowel resection (Chronic) Arthritis (Chronic) GERD (gastroesophageal reflux disease) (Chronic) Nausea & vomiting (Acute) Abdominal distension (gaseous) (Acute) Small bowel obstruction (Acute) Abdominal pain (Acute) Hypokalemia (Acute) Plan of Treatment: Continue with present treatment and follow up plan. Pt is to keep follow up appointment as instructed and take medications as ordered. Discharge Medications Discharge Medications: prednisone Allergy (Intermediate, Verified 09/09/19 20:38) HEADACHE Discharge Disposition Discharge Disposition: To home Discharge Condition: Stable Discharge Plan Discharge Plan Hospital Course: Ms. Santoro 73-year-old female with a past medical history of anxiety, arthritis, COPD, GERD, bowel resection, cholecystectomy and recurrent small bowel obstructions presented with abdominal pain. She was also having nausea and vomiting. She was recently admitted for small bowel obstruction. In the ER CT showed partial small bowel obstruction with transmural thickening of several of the dilated small bowel loops which could indicate developing ischemia or associated enteritis. Patient was started on pain control, hydration and n.p.o. status. General surgery Dr. Burrows was consulted. He advised no surgical intervention at this time. Patient declined NG tube placement. Her labs were monitored daily and serial KUBs were done. Patient was kept n.p.o. with D5 fluids. Her electrolytes were replaced as needed. Her KUB showed no obstruction on 09/30/2023. She was tolerating oral intake. She did not have any nausea, vomiting or diarrhea. She was having normal bowel movements. Patient was stable for discharge and will follow-up with PCP as scheduled. Patient Disposition: 01 HOME, SELF-CARE Condition: Stable Health Concerns: Post Hospitalization: new medications and changes needed to prevent readmission or further decline. Pt educated and given instructions on all concerns. Plan of Treatment: Continue with present treatment and follow up plan. Pt is to keep follow up appointment as instructed and take medications as ordered. Prescriptions: Continued albuterol sulfate 90 mcg/actuation HFA aerosol inhaler 1 puff INHALATION PRN PRN (Reason: Shortness Of Breath) diclofenac sodium 50 mg tablet,delayed release (DR/EC) 50 mg PO BID Trelegy Ellipta 100-62.5-25 mcg Blister With Device 1 inh INHALATION DAILY Orders to Discharge Patient Discharge Orders: Discharge (Routine); Ordered 09/30/23 Ordered By: Nicky Morales Follow ups/Referrals Follow ups/Referrals: Dinh Kahn [STAFF PHYSICIAN] - 3 days JOE BARRETO [STAFF PHYSICIAN] - 1 WEEK Instructions Instructions: Bowel Obstruction, [id number], Nausea and Vomiting, Adult, [id number], Soft-Food Eating Plan Stand Alone Forms: Excuse From Work or School, Post Hospital Follow Up Care
== END 2023-09-30 10:15 | disposition home or self-care (01) ==
LOC: ER 12:33 → ICU 12:33 → INTOOBSV 16:14 → OBSVTOIN 16:14 → MED/SURG 18:02
PROVIDERS: ADMIT Internal Medicine; ATTEND Internal Medicine